=== PATIENT | male | born 1955 | race Caucasian/White ===

== ENCOUNTER 2017-04-20 08:22 | Outpatient (RCR) | payer OTHER ==
[~2017-04-20 08:22] MED LIST: AC325T; ACET325T49 PO; ASCO500T20 PO; ASP325T PO; ASP81CT PO; ASPI-875 PO; BISM262T19 PO; CAL; CAL1TABL PO; CLOP75TA PO; HYDR-3714 PO; LISI10TA PO; MAG CITRATE; MECL-124 PO; METO-310 PO; MTP25TSR PO; MULT-974 PO; MULT1TAB12 PO; MULT1TAB63; OMEG1CAP51 PO; OMEG1CAP58; OMG1KC PO; ONDA4TAB8 PO; OXYC-12 PO; PANT20TA2 PO; PRAV40TA PO; PRV20T PO; SAWP1CAP; SAWP1CAP PO; VIT C
== END 2017-05-05 15:08 | disposition home or self-care (01) ==
PROVIDERS: ATTEND Orthopaedic Surgery
DX: Z47.89 Encounter for other orthopedic aftercare (principal)

== ENCOUNTER 2017-11-03 05:43 | Observation (INO) | payer BC, OTHER ==
[~2017-11-03] VITALS: Ht 167.6 cm; Wt 92.5 kg
[2017-11-03] MEDS ORDERED: NITROGLYCERIN 0.4 MG SL TABS BTL 25'S SL ONE (05:45)
[2017-11-03] MEDS: NITROGLYCERIN 0.4 MG SL TABS BTL 25'S SL PRN ×2 (05:47→05:52)
[2017-11-03 06:00] LABS: BASOPHILS % (AUTO) 0 % (0-10); EOSINOPHILS # (AUTO) 0.1 10^3/uL (0.0-0.3); EOSINOPHILS % (AUTO) 2 % (0-10); HEMATOCRIT 43 % (40-54); HEMOGLOBIN 14.4 G/DL (13.3-17.7); LYMPHOCYTES # (AUTO) 1.7 X 10^3 (1.0-4.0); LYMPHOCYTES % (AUTO) 32 % (12-44); MEAN CORPUSCULAR HEMOGLOBIN 29 PG (25-34); MEAN CORPUSCULAR HGB CONC 34 G/DL (32-36); MEAN CORPUSCULAR VOLUME 86 FL (80-99); MONOCYTES # (AUTO) 0.5 X 10^3 (0.0-1.0); MONOCYTES % (AUTO) 10 % (0-12); NEUTROPHILS # (AUTO) 2.9 X 10^3 (1.8-7.8); NEUTROPHILS % (AUTO) 55 % (42-75); PLATELET COUNT 191 10^3/uL (130-400); RED BLOOD COUNT 4.95 10^6/uL (4.35-5.85); WHITE BLOOD COUNT 5.2 10^3/uL (4.3-11.0)
[2017-11-03 06:11] LABS: PROTHROMBIN TIME PATIENT 12.7 SEC (12.2-14.7)
[2017-11-03 06:27] LABS: ALANINE AMINOTRANSFERASE 21 U/L (0-55); ALBUMIN 4.2 GM/DL (3.2-4.5); ALKALINE PHOSPHATASE 80 U/L (40-136); AMYLASE 71 U/L (25-125); BILIRUBIN,TOTAL 0.5 MG/DL (0.1-1.0); BUN/CREATININE RATIO 20; CALCIUM 9.3 MG/DL (8.5-10.1); CARBON DIOXIDE 23 MMOL/L (21-32); CHLORIDE 105 MMOL/L (98-107); CREATINE KINASE 114 U/L (30-200); GFR ESTIMATED > 60; GLUCOSE 113 MG/DL (70-105); LIPASE 33 U/L (8-78); MAGNESIUM 2.2 MG/DL (1.8-2.4); POTASSIUM 4.1 MMOL/L (3.6-5.0); SODIUM 138 MMOL/L (135-145); TOTAL PROTEIN 7.8 GM/DL (6.4-8.2)
[2017-11-03 06:39] LABS: CREATINE KINASE MB 2.2 NG/ML (<6.6); MYOGLOBIN SERUM 47.7 NG/ML (10.0-92.0)
--- NOTE | 2017-11-03 06:39 | ED Chest Pain ---
General Chief Complaint: Chest Pain Stated Complaint: CP Nursing Triage Note: chest pain since 0230 Nursing Sepsis Screen: No Definite Risk Source: patient, family Exam Limitations: no limitations History of Present Illness Date Seen by Provider: Nov 03, 2017 Time Seen by Provider: 06:36 Initial Comments The patient's a 62-year-old white male who presents with a chief complaint of central chest pain radiating to the neck. He was apparently awakened at about 02 30 with this discomfort. He denies diaphoresis. It came on as he was getting up to go to the bathroom. It continued relatively unabated following that. He took several aspirins. He had no nitroglycerin. His past history is relevant in that he had [address] Padron in 2010. Subsequently he presented in 2013 with chest pain and after angiography was referred to Dr. VALENCIA at [place] where he underwent a coronary artery bypass grafting procedure. He has not really had any trouble since that time. He has had hypertension but ultimately his beta long was discontinued because he became too hypotensive. Currently he takes an aspirin and a statin. After arrival here he had been given nitroglycerin and the pain has abated and he is pain free Timing/Duration: 4-6 hours Severity/Quality: mild, moderate Location: central Radiation: neck Prior CP/Workup: cardiac cath, heart attack Allergies and Home Medications Allergies Coded Allergies: Sulfa (Sulfonamide Antibiotics) (Verified Allergy, Unknown, 03/25/08) Home Medications Bismuth Subsalicylate 262 Mg Tablet, 2 TAB PO TID TAKE 2 TABLETS OF PEPTO BISMOL THREE TIME A DAY Prescribed by: ELODIA MIJARES on 03/20/15 0949 Metoclopramide HCl 10 Mg Tablet, 10 MG PO AC TAKE 1/2 HOUR BEFORE MEALS Prescribed by: ELODIA MIJARES on 03/20/15 0946 Multivitamin 1 Each Tablet, 1 EACH PO DAILY Prescribed by: CARISSA KIM on 03/12/14 0724 Pantoprazole Sodium 20 Mg Tablet.dr, 40 MG PO DAILY Prescribed by: RODDY MEYER on 03/17/14 1116 Pravastatin Sodium 40 Mg Tablet, 40 MG PO DAILY, (Reported) Patient Home Medication List Home Medication List Reviewed: Yes Review of Systems Constitutional: see HPI EENTM: No Symptoms Reported Respiratory: No Symptoms Reported Cardiovascular: See HPI Gastrointestinal: No Symptoms Reported Genitourinary: No Symptoms Reported Musculoskeletal: no symptoms reported Skin: no symptoms reported Psychiatric/Neurological: No Symptoms Reported Endocrine: No Symptoms Reported Past Qoejevo-Jwbgbx-Heqine Hx Patient Social History Alcohol Use: Denies Use Recreational Drug Use: No Smoking Status: Never a Smoker 2nd Hand Smoke Exposure: No Recent Foreign Travel: No Contact w/Someone Who Travel: No Recent Infectious Disease Expo: No Recent Hopitalizations: No Immunizations Up To Date Tetanus Booster (TDap): Unknown Past Medical History Surgeries: Yes (CYST REMOVED FROM URETHRA, UMBILICAL HERNIA REPAIR X2) CABG, Gallbladder Respiratory: No Cardiac: Yes (STENTS AND CABG) High Cholesterol, Hypertension Neurological: No Reproductive Disorders: No Sexually Transmitted Disease: No HIV/AIDS: No Genitourinary: No Kidney Stones Gastrointestinal: Yes Abdominal Hernia, Gall Bladder Disease Musculoskeletal: No Endocrine: No HEENT: No Cancer: No Psychosocial: Yes Anxiety Integumentary: No Blood Disorders: No Adverse Reaction/Blood Tranf: No Physical Exam Vital Signs Vital Signs - First Documented Capillary Refill : Less Than 3 Seconds Height, Weight, BMI Height: 5'6.00" Weight: 205lbs. 4.8oz. [id number]; 35.67 BMI Method:Stated General Appearance: Mild Distress HEENT: Normal ENT Inspection Neck: Normal Inspection Respiratory: Chest Non Tender, Lungs Clear, Normal Breath Sounds, No Accessory Muscle Use, No Respiratory Distress Cardiovascular: Regular Rate, Rhythm, No Edema, No Gallop, No JVD, No Murmur, Normal Peripheral Pulses, Other (sternotomy scar) Gastrointestinal: Normal Bowel Sounds, No Organomegaly, No Pulsatile Mass, Non Tender Extremity: Normal Capillary Refill, Normal Inspection, Normal Range of Motion, Non Tender, No Calf Tenderness, No Pedal Edema Neurologic/Psychiatric: Alert, Oriented x3, No Motor/Sensory Deficits, Normal Mood/Affect Skin: Normal Color, Warm/Dry Progress/Results/Core Measures Results/Orders Lab Results Laboratory Tests Test 11/03/17 05:49 Range/Units White Blood Count 5.2 4.3-11.0 10^3/uL Red Blood Count 4.95 4.35-5.85 10^6/uL Hemoglobin 14.4 13.3-17.7 G/DL Hematocrit 43 40-54 % Mean Corpuscular Volume 86 80-99 FL Mean Corpuscular Hemoglobin 29 25-34 PG Mean Corpuscular Hemoglobin Concent 34 32-36 G/DL Red Cell Distribution Width 14.0 10.0-14.5 % Platelet Count 191 130-400 10^3/uL Mean Platelet Volume 10.0 7.4-10.4 FL Neutrophils (%) (Auto) 55 42-75 % Lymphocytes (%) (Auto) 32 12-44 % Monocytes (%) (Auto) 10 0-12 % Eosinophils (%) (Auto) 2 0-10 % Basophils (%) (Auto) 0 0-10 % Neutrophils # (Auto) 2.9 1.8-7.8 X 10^3 Lymphocytes # (Auto) 1.7 1.0-4.0 X 10^3 Monocytes # (Auto) 0.5 0.0-1.0 X 10^3 Eosinophils # (Auto) 0.1 0.0-0.3 10^3/uL Basophils # (Auto) 0.0 0.0-0.1 10^3/uL Prothrombin Time 12.7 12.2-14.7 SEC INR Comment 1.0 0.8-1.4 Activated Partial Thromboplast Time 31 24-35 SEC Sodium Level 138 135-145 MMOL/L Potassium Level 4.1 3.6-5.0 MMOL/L Chloride Level 105 98-107 MMOL/L Carbon Dioxide Level 23 21-32 MMOL/L Anion Gap 10 5-14 MMOL/L Blood Urea Nitrogen 16 7-18 MG/DL Creatinine 0.80 0.60-1.30 MG/DL Estimat Glomerular Filtration Rate > 60 BUN/Creatinine Ratio 20 Glucose Level 113 H 70-105 MG/DL Calcium Level 9.3 8.5-10.1 MG/DL Corrected Calcium 9.1 8.5-10.1 MG/DL Magnesium Level 2.2 1.8-2.4 MG/DL Total Bilirubin 0.5 0.1-1.0 MG/DL Aspartate Amino Transf (AST/SGOT) 26 5-34 U/L Alanine Aminotransferase (ALT/SGPT) 21 0-55 U/L Alkaline Phosphatase 80 40-136 U/L Total Creatine Kinase 114 30-200 U/L Creatine Kinase MB 2.2 <6.6 NG/ML Myoglobin 47.7 10.0-92.0 NG/ML Troponin I < 0.30 <0.30 NG/ML B-Type Natriuretic Peptide 10.1 <100.0 PG/ML Total Protein 7.8 6.4-8.2 GM/DL Albumin 4.2 3.2-4.5 GM/DL Amylase Level 71 25-125 U/L Lipase 33 8-78 U/L Medications Given in ED Current Medications Medications Dose Ordered Sig/Michele Route Start Time Stop Time Status Last Admin Dose Admin Nitroglycerin 0.4 mg UD PRN SL 11/03/17 06:00 11/03/17 05:52 0.4 MG Vital Signs/I&O 11/03/17 11/03/17 11/03/17 05:45 05:45 05:45 Temp 98.8 Pulse 80 Resp 18 B/P (MAP) 175/74 (107) Pulse Ox 99 99 O2 Delivery Nasal Cannula Nasal Cannula Nasal Cannula O2 Flow Rate 2.0 2.0 2.00 Blood Pressure Mean: 107 Departure Communication (Admissions) Troponin returned negative. It is noted that the patient refused a chest x- ray. Spoke to Dr. Padron at 0655. The patient is to be admitted to stepdown as observation. Impression Primary Impression: chest pain Additional Impression: past history of coronary intervention Disposition: ADMITTED INPATIENT Condition: Improved Admissions Decision to Admit Reason: Admit from ER (General) Decision to Admit/Date: Nov 03, 2017 Time/Decision to Admit Time: 07:07 Departure-Patient Inst. Referrals: JILLIAN JAMES MD (PCP/Family) Primary Care Physician STEPHANI ROCKWELL MD Nov 03, 2017 06:39
[2017-11-03 08:00] VITALS: BP 122/67
--- NOTE | 2017-11-03 08:37 | Consultation-Cardiology ---
HPI-Cardiology Cardiology Consultation Date of Consultation 11/03/17 Date of Admission Time Seen by Provider: 08:36 Indication: Chest pain HPI 62 years old gentleman with extensive cardiac history, history of CABG, strong family history of heart disease, woke up with chest pain left sided, appeared to be repaired dose, had left-sided neck pain, reporting improvement after receiving sublingual nitroglycerin in the emergency room, currently feeling better. Denied any active pain. He admits having some shortness of breath. No palpitation, syncope or near syncopal episode no similar episodes recently. Home Medications & Allergies Allergies: Coded Allergies: Sulfa (Sulfonamide Antibiotics) (Verified Allergy, Unknown, 03/25/08) Home Medication List Reviewed: Yes XSM-Cexknt-Tiygjg Hx Patient Social History Marital Status: Alcohol Use: Denies Use Recreational Drug Use: No Smoking Status: Never a Smoker 2nd Hand Smoke Exposure: No Recent Foreign Travel: No Recent Infectious Disease Expo: No Recent Hopitalizations: No Immunizations Up To Date Tetanus Booster (TDap): Unknown Past Medical History Past medical history discussed below Family Medical History Family Medical Hx Strong family history of heart disease with multiple family members with heart disease Constitutional: no symptoms reported, see HPI EENTM: see HPI, no symptoms reported Respiratory: see HPI; No cough; dyspnea on exertion; No hemoptysis, No orthopnea, No phlegm, No short of breath, No stridor, No wheezing, No other Cardiovascular: see HPI, chest pain; No edema, No Hx of Intervention, No palpitations, No syncope, No vascular heart diseas, No other Gastrointestinal: see HPI Genitourinary: see HPI Musculoskeletal: see HPI Skin: see HPI Psychiatric/Neurological: No Symptoms Reported, See HPI Reviewed Test Results Reviewed Test Results Lab Laboratory Tests Test 11/03/17 05:49 Range/Units White Blood Count 5.2 4.3-11.0 10^3/uL Red Blood Count 4.95 4.35-5.85 10^6/uL Hemoglobin 14.4 13.3-17.7 G/DL Hematocrit 43 40-54 % Mean Corpuscular Volume 86 80-99 FL Mean Corpuscular Hemoglobin 29 25-34 PG Mean Corpuscular Hemoglobin Concent 34 32-36 G/DL Red Cell Distribution Width 14.0 10.0-14.5 % Platelet Count 191 130-400 10^3/uL Mean Platelet Volume 10.0 7.4-10.4 FL Neutrophils (%) (Auto) 55 42-75 % Lymphocytes (%) (Auto) 32 12-44 % Monocytes (%) (Auto) 10 0-12 % Eosinophils (%) (Auto) 2 0-10 % Basophils (%) (Auto) 0 0-10 % Neutrophils # (Auto) 2.9 1.8-7.8 X 10^3 Lymphocytes # (Auto) 1.7 1.0-4.0 X 10^3 Monocytes # (Auto) 0.5 0.0-1.0 X 10^3 Eosinophils # (Auto) 0.1 0.0-0.3 10^3/uL Basophils # (Auto) 0.0 0.0-0.1 10^3/uL Prothrombin Time 12.7 12.2-14.7 SEC INR Comment 1.0 0.8-1.4 Activated Partial Thromboplast Time 31 24-35 SEC Sodium Level 138 135-145 MMOL/L Potassium Level 4.1 3.6-5.0 MMOL/L Chloride Level 105 98-107 MMOL/L Carbon Dioxide Level 23 21-32 MMOL/L Anion Gap 10 5-14 MMOL/L Blood Urea Nitrogen 16 7-18 MG/DL Creatinine 0.80 0.60-1.30 MG/DL Estimat Glomerular Filtration Rate > 60 BUN/Creatinine Ratio 20 Glucose Level 113 H 70-105 MG/DL Calcium Level 9.3 8.5-10.1 MG/DL Corrected Calcium 9.1 8.5-10.1 MG/DL Magnesium Level 2.2 1.8-2.4 MG/DL Total Bilirubin 0.5 0.1-1.0 MG/DL Aspartate Amino Transf (AST/SGOT) 26 5-34 U/L Alanine Aminotransferase (ALT/SGPT) 21 0-55 U/L Alkaline Phosphatase 80 40-136 U/L Total Creatine Kinase 114 30-200 U/L Creatine Kinase MB 2.2 <6.6 NG/ML Myoglobin 47.7 10.0-92.0 NG/ML Troponin I < 0.30 <0.30 NG/ML B-Type Natriuretic Peptide 10.1 <100.0 PG/ML Total Protein 7.8 6.4-8.2 GM/DL Albumin 4.2 3.2-4.5 GM/DL Amylase Level 71 25-125 U/L Lipase 33 8-78 U/L Physical Exam Vital Signs Vital Signs - First Documented Capillary Refill : Less Than 3 Seconds Height, Weight, BMI Height: 5'6.00" Weight: 205lbs. 4.8oz. 93.617773gp; 35.67 BMI Method:Stated General Appearance: No Apparent Distress, WD/WN Eyes: Bilateral Eye Normal Inspection, Bilateral Eye PERRL, Bilateral Eye EOMI HEENT: PERRL/EOMI, TMs Normal, Normal ENT Inspection, Pharynx Normal Neck: Full Range of Motion, Normal Inspection, Non Tender, Supple, Carotid Bruit Respiratory: Chest Non Tender, Lungs Clear, Normal Breath Sounds, No Accessory Muscle Use, No Respiratory Distress Cardiovascular: Regular Rate, Rhythm, No Edema, No Gallop, No JVD, No Murmur, Normal Peripheral Pulses Gastrointestinal: Normal Bowel Sounds, No Organomegaly, No Pulsatile Mass, Non Tender, Soft Back: Normal Inspection, No CVA Tenderness, No Vertebral Tenderness Extremity: Normal Capillary Refill, Normal Inspection, Normal Range of Motion, Non Tender, No Calf Tenderness, No Pedal Edema Neurologic/Psychiatric: Alert, Oriented x3, No Motor/Sensory Deficits, Normal Mood/Affect Skin: Normal Color, Warm/Dry Lymphatic: No Adenopathy A/P-Cardiology Admission Diagnosis Chest pain Coronary artery disease Hypertension Hyperlipidemia Assessment/Plan Chest pain resembling angina. Feeling better at this time, improve after sublingual nitroglycerin, planning to repeat stress test, continue to monitor cardiac enzymes. Coronary artery disease, history of multiple interventions where he had stents in the LAD, circumflex and right coronary artery done in 2010. Had another cardiac catheterization in June 2013 showing 80 percent stenosis in the ostium of the LAD confirmed with FFR and 95 percent stenosis in the proximal to mid right coronary artery. Patient underwent CABG 2 at [place] June 2013 using ARCE to the LAD and reverse saphenous vein graft to the distal right coronary artery with excellent results. Most recent stress test and 2-D echocardiogram done July 2014 revealing no ischemia or infarct with normal EF, planning to repeat stress test and echocardiogram Congestive heart failure, most recent echocardiogram done in July 2014 showed normal LV function, ejection fraction 60 percent. No congestive heart failure at this time. Continue to monitor. Patient is unable to tolerate beta blockers or Edil inhibitors/ARB's secondary to history of hypotension and syncope. History of Hypertension, episodes of severe hypotension, reporting improvement after discontinuation of beta blockers and lisinopril. Monitor blood pressure Hyperlipidemia, lipid profile reveals mildly elevated LDL. Maintained on pravastatin 40 mg daily. Discussed diet and exercise. Hyperparathyroidism, underwent surgical parathyroidectomy on September 22, 2016, and again in March 2017. Being followed at . Obesity, BMI is 33, patient has gained weight, we discussed weight loss and exercise and monitoring his diet. Status post syncope. Borderline hypotensive. Improved after discontinuation of beta blockers and lisinopril. We will continue to monitor. Strong family history of heart disease. Addendum on November 03, 2017 at 320 p.m. Stress test showed good exercise tolerance with no significant ischemia, diaphragmatic attenuation with mild decreased uptake at the mid to apical inferior wall with mild reversibility. I reassured the patient, patient will be discharged, he refused to have a chest x-ray done. I will arrange for follow -up with Dr. Merida and my office as an outpatient Clinical Quality Measures AMI/AHF: ASA po Prior to arrival: Yes (324) FORTUNATO BOUCHER MD Nov 03, 2017 08:37
[2017-11-03 09:00] VITALS: BP 109/57
[2017-11-03] MEDS ORDERED: PRAV40TA2 PO (09:20)
[2017-11-03] MEDS ORDERED: MULT-35 PO (09:21)
[2017-11-03] MEDS ORDERED: ASPI-983 PO (09:21)
[2017-11-03] MEDS ORDERED: CHOL20003 PO (09:21)
[2017-11-03] MEDS ORDERED: OMG1KC PO (09:21)
[2017-11-03 10:00] VITALS: BP 123/65
[2017-11-03 11:00] VITALS: BP 119/61
[2017-11-03] MEDS ORDERED: NITROGLYCERIN 0.4 MG SL TABS BTL 25'S SL PRN (12:00)
[2017-11-03] MEDS ORDERED: CATHETER FLUSH 10 ML SYR IV PRN (12:00)
[2017-11-03 12:55] VITALS: BP 188/88
[2017-11-03 14:00] VITALS: BP 118/96
[2017-11-03] MEDS ORDERED: CATHETER FLUSH 10 ML SYR IV SCH (14:00)
[2017-11-03] MEDS ORDERED: ALPRAZolam 0.25 MG (XANAX) TAB PO PRN (15:00)
[2017-11-03] MEDS ORDERED: ONDANSETRON 4 MG/2 ML (SDV) Z0FRAN IVP PRN (15:00)
[2017-11-03] MEDS ORDERED: fentaNYL INJECTION 100 MCG/2 ML AMP IVP PRN (15:00)
[2017-11-03] MEDS ORDERED: DOCUSATE SODIUM 100 MG (COLACE) CAP PO PRN (15:00)
[2017-11-03] MEDS ORDERED: ACETAMINOPHEN 500 MG TAB (TYLENOL) PO PRN (15:00)
[2017-11-03] MEDS ORDERED: CALCIUM CARBONATE 500 MG (TUMS) TAB.CHEW PO PRN (15:00)
--- NOTE | 2017-11-03 15:08 | Progress Note-Hospitalist ---
ALBA BARBOZA MED STUDENT 11/03/17 1508: Subjective HPI/CC On Admission Date Seen by Provider: Nov 03, 2017 Time Seen by Provider: 15:02 Subjective/Events-last exam Pt has been stable since admission Ambulating No pain since taking nitroglycerin this morning No bowel/bladder dysfunction Reviewed medications- continue aspirin and statin tx Stress test results pending Objective Exam Vital Signs Vital Signs Date Time Temp Pulse Resp B/P (MAP) Pulse Ox O2 Delivery O2 Flow Rate FiO2 11/03/17 14:00 97.8 Room Air 11/03/17 13:00 94 11/03/17 12:55 98 11/03/17 07:59 17 2.00 Capillary Refill : Less Than 3 Seconds General Appearance: No Apparent Distress Results/Procedures Lab Laboratory Tests 11/03/17 05:49 Patient resulted labs reviewed. Assessment/Plan Assessment and Plan Assess & Plan/Chief Complaint Assessment: ACS Plan: Troponin negative Continue statin and aspirin Reviewed labs Stress test results pending Clinical Quality Measures AMI/AHF: ASA po Prior to arrival: Yes (324) DVT/VTE Risk/Contraindication: Risk Factor Score Per Nursin RFS Level Per Nursing on Admit: 3=High NATALYA COELHO DO 11/03/17 2140: Subjective Subjective/Events-last exam Patient was not see before DC Objective Exam General Appearance: Other (pt not seen by attending before DC) Assessment/Plan Assessment and Plan Assess & Plan/Chief Complaint chest pain ALBA BARBOZA MED STUDENT Nov 03, 2017 15:08 NATALYA COELHO DO Nov 03, 2017 21:40
--- NOTE | 2017-11-03 15:24 | Clinic Account Progress/Dx ---
Clinic Account Progress/Dx DIAGNOSIS: Date Seen by Provider: Nov 03, 2017 Time Seen by Provider: 15:24 Chest pain Coronary artery disease Hypertension Hyperlipidemia FORTUNATO BOUCHER MD Nov 03, 2017 3:24 pm
--- NOTE | 2017-11-03 15:36 | ELECTROENCEPHALOPATHY REPORT ---
DATE OF SERVICE: 11/03/2017 EXERCISE MYOVIEW STRESS TEST REPORT Baseline heart rate is 77, baseline blood pressure 152/70. Baseline EKG is sinus rhythm with no ischemic changes. In summary, the patient was injected with 9.5 mCi of technetium-99 Myoview and the resting images were obtained. Then, the patient started exercising with a baseline heart rate, blood pressure and EKG mentioned above. The patient was able to exercise for a total of 6 minutes on Clyde protocol, achieving maximum heart rate of 140. With peak exercise level, blood pressure was 190/79. EKG was showing [address] depression in II, III, aVF, V4 and V5. During recovery, heart rate and blood pressure returned to baseline. EKG returned to baseline. The resting and stress images were reviewed and compared in the short axis, horizontal long axis, and vertical long axis views. Review of the images showed diaphragmatic attenuation with decreased uptake involving the mid to apical inferior wall and inferolateral wall with mild reversibility. SSS is 4, SDS 3, TID value 0.97. On the gated images, the left ventricle appeared to be in normal size with normal contractility. Calculated ejection fraction of 52%. CONCLUSION: 1. Fair exercise tolerance, a total of 6 minutes on standard Clyde protocol, total of 7.3 METS achieving 89% of maximum expected heart rate. 2. Hypertensive response to exercise, returned to baseline during recovery. 3. Minimal nondiagnostic EKG changes with exercise returned to baseline during recovery. 4. Diaphragmatic attenuation with mild decrease uptake at the mid to apical inferior wall and inferolateral wall with subtle reversibility. 5. Normal left ventricular size with normal contractility. Calculated ejection fraction of 52%. Job ID: [id number] DocumentID: [id number] Dictated Date: 11/03/2017 15:11:52 In Home Baby Sitter Date: 11/03/2017 15:35:45 Dictated By: FORTUNATO BOUCHER MD
[2017-11-03] MEDS ORDERED: OMEGA 3 (FISH OIL) 1000 MG CAP PO SCH (17:00)
[2017-11-03] MEDS ORDERED: SIMvastatin 20 MG (ZOCOR) TAB PO SCH (21:00)
[2017-11-03] MEDS ORDERED: NON-FORMULARY MEDICATION 1 EA EA (Pravastatin Sodium 40 MG) PO SCH (21:00)
--- NOTE | 2017-11-03 21:41 | History & Physical-Hospitalist ---
History of Present Illness HPI/Chief Complaint Patient not seen prior to DC Date Seen 11/03/17 Time Seen by Provider: 00:00 Attending Physician Darby Stevenson DO PCP Sonny Merida MD Referring Physician Date of Admission Nov 03, 2017 at 07:00 Home Medications & Allergies Home Medications Reviewed patient Home Medication Reconciliation performed by pharmacy medication reconciliations train control electronic technician and/or nursing. Patients Allergies have been reviewed. Allergies Allergies Coded Allergies Sulfa (Sulfonamide Antibiotics) (Verified Allergy, Unknown, 03/25/08) Past Nmccuit-Rjfghc-Wbioby Hx Past Med/Social Hx: Reviewed Nursing Past Med/Soc Hx Patient Social History Marrital Status: Alcohol Use: Denies Use Recreational Drug Use: No Smoking Status: Never a Smoker 2nd Hand Smoke Exposure: No Physical Abuse Screen: No Sexual Abuse: No Recent Foreign Travel: No Contact w/other who traveled: No Recent Hopitalizations: No Recent Infectious Disease Expo: No Immunizations Up To Date Tetanus Booster (TDap): Unknown Seasonal Allergies Seasonal Allergies: No Past Medical History Surgeries: CABG, Gallbladder Cardiac: High Cholesterol, Hypertension Reproductive: No Sexually Transmitted Disease: No HIV/AIDS: No Genitourinary: Kidney Stones Gastrointestinal: Abdominal Hernia, Gall Bladder Disease Psychosocial: Anxiety History of Blood Disorders: No Adverse Reaction to Blood Steele: No Review of Systems ROS-Unable to Obtain: Patient not seen prior to DC Constitutional: other (Patient not seen prior to DC) Physical Exam Physical Exam Vital Signs Vital Signs - First Documented Capillary Refill : Less Than 3 Seconds Height, Weight, BMI Height: 5'6.00" Weight: 204lbs. 0.6oz. 92.446076ps; 32.9 BMI Method:Stated General Appearance: Other (Patient not seen prior to DC) Results Results/Procedures Labs Laboratory Tests 11/03/17 05:49 Patient resulted labs reviewed. Assessment/Plan Admission Diagnosis Patient not seen prior to DC Admission Status: Observation Reason for Inpatient Admission: Patient not seen prior to DC Assessment and Plan chest pain Clinical Quality Measures AMI/AHF: ASA po Prior to arrival: Yes (324) DVT/VTE Risk/Contraindication: Risk Factor Score Per Nursin RFS Level Per Nursing on Admit: 3=High DARBY STEVENSON DO Nov 03, 2017 21:41
[2017-11-04] MEDS ORDERED: MULTIVIT W/MINERALS TAB (THERAGRAN M) PO SCH (07:00)
[2017-11-04] MEDS ORDERED: NON-FORMULARY MEDICATION 1 EA EA (Multivitamin (Daily Multiple Vitamin) 1 TAB) PO SCH (09:00)
[2017-11-04] MEDS ORDERED: NON-FORMULARY MEDICATION 1 EA EA (Cholecalciferol (Vitamin D3) (Vitamin D3) 2,000 UNIT) PO SCH (09:00)
[2017-11-04] MEDS ORDERED: VITAMIN D3 1,000 UNITS (CHOLECALCIFEROL) TABLET PO SCH (09:00)
[2017-11-04] MEDS ORDERED: ASPIRIN E.C. 81 MG (ECOTRIN) TAB PO SCH (09:00)
--- OUTSIDE RECORDS SUMMARY | 2017-11-04 10:29 | XMS REPORT | Clinical Summary ---
Author Author [facility] Address Unknown Phone Unavailable Care Team Providers Care Supervisor Customer Records Division Name Role Phone Reese Son MD PP Allergies No Known Allergies Current Medications Prescription Sig. Disp. Refills Start End Date Status Date atorvastatin (LIPITOR) 40 Take 40 mg by mouth 9 07/22/19 Active MG tablet daily. 16 Active Problems No known active problems Immunizations Name Dates Previously Given Next Due Influenza IIV3 MDV 01/11/2013, 12/28/2011, 12/29/2010 (Multi-dose vial) Influenza IIV4 MDV 01/06/2015, 01/08/2014 (Multi-dose vial) Influenza TIV (HX thru 12/30/2009, 12/03/2008, 01/25/2008, 01/28/2005, Dec 18 2009) 01/22/2003, 01/23/2002, 01/31/2001 Family History Medical History Relation Name Comments Cancer Father Cancer Mother Relation Name Status Comments Father Mother Sister Alive Social History Tobacco Use Types Packs/Day Years Used Date Never Smoker Smokeless Tobacco: Former User Alcohol Use Drinks/Week oz/Week Comments Yes 1 Standard 0.6 drinks or equivalent Sex Assigned at Date Recorded Not on file Last Filed Vital Signs Vital Sign Reading Time Taken Blood Pressure 151/84 09/18/2015 2:37 PM CDT Pulse 55 09/18/2015 2:37 PM CDT Temperature 36.7 C (98 F) 09/18/2015 12:21 PM CDT Respiratory Rate 18 09/18/2015 2:37 PM CDT Oxygen Saturation 98% 09/18/2015 2:37 PM CDT Inhaled Oxygen - - Concentration Weight 102.1 kg (225 lb) 09/18/2015 12:21 PM CDT Height 177.8 cm (5' 10") 09/18/2015 12:21 PM CDT Body Mass Index 32.28 09/18/2015 12:21 PM CDT Plan of Treatment Health Maintenance Due Date Last Done Comments Hepatitis C Screening 1955 DTaP,Tdap,and Td Vaccines 02/08/1974 (1 - Tdap) Zoster Recombinant 02/08/2005 Vaccine (RZV,Shingrix) (1 of 2 - SVH 2 Dose Standard) Colon Cancer 09/17/2020 09/18/2015, 09/18/2015 Screening-High Risk Results Not on filefrom Last 3 Months
--- OUTSIDE RECORDS SUMMARY | 2017-11-04 10:29 | XMS REPORT | Encounter Summary ---
Author Author [facility] Organization [facility] Address Unknown Phone Unavailable Care Team Providers Care Wrap Yarn Sorter Name Role Phone Sonny Merida MD PCP Reason for Visit * Reason Comments Results Encounter Details Date Type Department Care Team Description 10/26/2017 Telephone [facility] Rock Barker MD Results [facility] - [facility] Exam [address] [facility] Cancer Center [facility] [address] [place] [address] [place] [address] [phone] Social History Tobacco Use Types Packs/Day Years Used Date Never Smoker Smokeless Tobacco: Never Used Alcohol Use Drinks/Week oz/Week Comments No Sex Assigned at Date Recorded Not on file as of this encounter Functional Status Functional Status Response Date of Assessment Does the patient have a hearing impairment: No 09/23/2016 Does the patient have a visual impairment: No 09/23/2016 Does the patient have impaired ambulation: No 09/23/2016 Does the patient have an activity of daily living No 09/23/2016 (ADL) impairment: Does the patient have an instrumental activity of No 09/23/2016 daily living (IADL) impairment: Cognitive Status Response Date of Assessment Does the patient have a cognitive impairment: No 09/23/2016 as of this encounter Miscellaneous Notes * Telephone Encounter - Soha Correa RN - 10/26/2017 12:27 PM CDT Called pt to inform them that Dr. Barker has reveiwed their lab results and everything looks good. Pt did not answer the phone. I left a voicemail with a call back number. in this encounter Plan of Treatment Not on fileas of this encounter Visit Diagnoses Not on filein this encounter
--- OUTSIDE RECORDS SUMMARY | 2017-11-04 10:29 | XMS REPORT | Encounter Summary ---
Author Author [facility] Organization [facility] Address Unknown Phone Unavailable Care Team Providers Care Battery Vent Plug Inserter Name Role Phone Sonny Merida MD PCP Encounter Details Date Type Department Care Team Description 10/25/2017 Orders Only [facility] Rock Barker MD Cancer Center - [facility] Exam [address] [facility] Cancer Center [facility] [address] [place] [address] [place] [address] [phone] Social History Tobacco Use Types Packs/Day Years [...] impairment: No 09/23/2016 as of this encounter Plan of Treatment Not on fileas of this encounter Results * PARATHYROID HORMONE (10/25/2017 1:00 PM) PTH Hormone 44 14 - 64 pg/mL [facility] Comment: Interpretive GuideIntact PTH Calcium ------ ------- Normal ParathyroidNormal Normal HypoparathyroidismLow or Low NormalLow Hyperparathyroidism Primary Normal or High High SecondaryH igh Normal or Low Tertiary High High Non-Parathyroid HypercalcemiaLow or Low NormalHigh REPORT COMMENT: FASTING:NO Test Performed at: [facility] [address] [employer] [place], [id number] JONATHON HERRMANN DO,MPH Performing Organization Address [facility] Phone Number [facility] [phone] [place] [address] * 25-OH VITAMIN D (D2 + D3) (10/25/2017 12:41 PM) Vitamin D(25-OH)Total 42 30 - 100 ng/mL [facility] Comment: 25-OHD3 indicates both endogenous production and supplementation. 25-OHD2 is an indicator of exogenous sources, such as diet or supplementation. Therapy is based on measurement of Total 25-OHD, with levels <20 ng/mL indicative of Vitamin D deficiency, while levels between 20 ng/mL and 30 ng/mL suggest insufficiency. Optimal levels are > or=30 ng/mL. VITAMIN D3,25-OH 42Comment: Reference Range: See Below ng/mL [facility] Not established Vitamin D2,25-OH <4 See Below ng/mL [facility] Comment: Reference Range: Not established This test was developed and its analytical performance characteristics have been determined by [facility]. It has not been cleared or approved by the US Food and Drug Administration. This assay has been validated pursuant to the CLIA regulations and is used for clinical purposes. Test Performed at: [facility] [id number] SHERYL CONDON MD,PHD Performing Organization Address [facility] Phone Number [facility] [address] [place] [address] * CALCIUM (10/25/2017 12:41 PM) Calcium 9.0 8.6 - 10.3 mg/dL [facility] Comment: Test Performed at: [facility] [address] [employer] [place], [id number] JONATHON HERRMANN DO,MPH Performing Organization Address [facility] Phone Number [facility] [address] [place] [address] in this encounter Visit Diagnoses Not on filein this encounter
--- OUTSIDE RECORDS SUMMARY | 2017-11-04 10:29 | XMS REPORT | Clinical Summary ---
Author Author [facility] Organization [facility] Address Unknown Phone Unavailable Care Team Providers Care Dry Starch Operator Name Role Phone Sonny Merida MD PCP Source Comments Some departments are not documenting in the electronic medical record. If you do not see the information that you expected, contact Release of Information in the Health Information Management department at [phone] for further assistance in locating additional records.[facility] Allergies Active Allergy Reactions Severity Noted Date Comments Anesthetics - Amide Type NAUSEA AND VOMITING Low 08/23/2016 Pt reports intolerance to general anesthesia Sulfa (Sulfonamide RASH, ITCHING Medium 08/23/2016 Antibiotics) Current Medications Prescription Sig. Disp. Refills Start End Date Status Date aspirin EC 81 mg tablet Take 81 mg by mouth Active daily. Take with food. pravastatin (PRAVACHOL) Take 40 mg by mouth at Active 40 mg tablet bedtime daily. vitamins, multiple tablet Take 1 Tab by mouth Active daily. fish oil- omega 3-DHA/EPA Take 1 Cap by mouth three Active 300/1,000 mg capsule times daily. ascorbic acid (VITAMIN C) Take 500 mg by mouth Active 500 mg tablet daily. olive leaf extract 250 mg Take 1 capsule by mouth Active cap daily. Cholecalciferol (Vitamin Take 1 capsule by mouth Active D3) 2,000 unit cap daily. traMADol (ULTRAM) 50 mg Take 50 mg by mouth every Active tablet 6 hours as needed for Pain. oxyCODONE (ROXICODONE, Take 1 tablet by mouth 40 tablet 0 04/15/19 10/26/19 Discontin OXY-IR) 5 mg every 4 hours as needed 18 18 ued tabletIndications: Earliest Fill Date: Hypercalcemia 04/15/17 polyethylene glycol 3350 Take 1 packet by mouth 12 each 3 04/15/19 10/26/19 Discontin (MIRALAX) 17 g daily. 18 18 ued packetIndications: Hypercalcemia senna/docusate Take 1 tablet by mouth 60 tablet 0 04/15/19 10/26/19 Discontin (SENOKOT-S) 8.6/50 mg twice daily. 18 18 ued tabletIndications: Hypercalcemia Active Problems Problem Noted Date Hyperparathyroidism (HCC) 09/23/2016 Hypercalcemia 08/23/2016 History of renal calculi 08/23/2016 Resolved Problems Problem Noted Date Resolved Date Hyperparathyroidism (HCC) 08/23/2016 09/22/2016 Encounters Date Type Specialty Care Team Description 10/26/2017 Telephone Oncology Rock Barker MD Results 10/25/2017 Office Visit Oncology Rock Barker MD Hyperparathyroidism (HCC) 10/25/2017 Orders Only Oncology Rock Barker MD from Last 3 Months Family History Medical History Relation Name Comments Heart Disease Brother High Cholesterol Brother Heart Attack Father Hypertension Father Stroke Father Heart Disease Maternal Grandfather Heart Disease Paternal Aunt Hypertension Paternal Grandmother Heart Disease Paternal Uncle Relation Name Status Comments Brother Father Maternal Grandfather Mother Alive Paternal Aunt Paternal Grandmother Paternal Uncle Social History Tobacco Use Types Packs/Day Years Used Date Never Smoker Smokeless Tobacco: Never Used Alcohol Use Drinks/Week oz/Week Comments No Sex Assigned at Date Recorded Not on file Last Filed Vital Signs Vital Sign Reading Time Taken Blood Pressure 135/73 10/25/2017 1:28 PM CDT Pulse 72 10/25/2017 1:28 PM CDT Temperature 36.8 C (98.3 F) 10/25/2017 1:28 PM CDT Respiratory Rate 18 10/25/2017 1:29 PM CDT Oxygen Saturation 100% 10/25/2017 1:28 PM CDT Inhaled Oxygen - - Concentration Weight 105.9 kg (233 lb 6.4 oz) 10/25/2017 1:28 PM CDT Height 167.6 cm (5' 6") 10/25/2017 1:28 PM CDT Body Mass Index 37.67 10/25/2017 1:28 PM CDT Plan of Treatment Health Maintenance Due Date Last Done Comments HEPATITIS C SCREENING 1955 PHYSICAL (COMPREHENSIVE) 1962 EXAM PERTUSSIS VACCINE 1966 HIV SCREENING 1970 TETANUS VACCINE 1972 COLORECTAL CANCER 2005 SCREENING SHINGLES RECOMBINANT 2005 VACCINE (1 of 2) INFLUENZA VACCINE 12/19/2017 Results * PARATHYROID HORMONE (10/25/2017 1:00 PM) PTH Hormone 44 14 - 64 pg/mL [facility] Comment: Interpretive GuideIntact PTH Calcium ------ ------- Normal ParathyroidNormal Normal HypoparathyroidismLow or Low NormalLow Hyperparathyroidism Primary Normal or High High SecondaryH igh Normal or Low Tertiary High High Non-Parathyroid HypercalcemiaLow or Low NormalHigh REPORT COMMENT: FASTING:NO Test Performed at: [facility] [id number] [facility], [id number] JONATHON HERRMANN DO,MPH Performing Organization Address [facility] Phone Number [facility] [address] [place] [address] * 25-OH VITAMIN D (D2 + D3) (10/25/2017 12:41 PM) Vitamin D(25-OH)Total 42 30 - 100 ng/mL [facility] Comment: 25-OHD3 indicates both endogenous production and supplementation. 25-OHD2 is an indicator of exogenous sources, such as diet or supplementation. Therapy is based on measurement of Total 25-OHD, with levels <20 ng/mL indicative of Vitamin D deficiency, while levels between 20 ng/mL and 30 ng/mL suggest insufficiency. Optimal levels are > or=30 ng/mL. VITAMIN D3,25-OH 42Comment: Reference Range: See Below ng/mL [facility] Not established Vitamin D2,25-OH <4 See Below ng/mL [facility] Comment: Reference Range: Not established This test was developed and its analytical performance characteristics have been determined by [employer] [facility]. It has not been cleared or approved by the US Food and Drug Administration. This assay has been validated pursuant to the CLIA regulations and is used for clinical purposes. Test Performed at: [facility] [place] [id number] [place] [address], [id number] SHERYL CONDON MD,PHD Performing Organization Address [facility] Phone Number [facility] [address] [place] [address] * CALCIUM (10/25/2017 12:41 PM) Calcium 9.0 8.6 - 10.3 mg/dL [facility] Comment: Test Performed at: [employer] [address] [place], [id number] JONATHON HERRMANN DO,MPH Performing Organization Address City/State/Zipcode Phone Number [facility] [address] [place] [address] from Last 3 Months
--- OUTSIDE RECORDS SUMMARY | 2017-11-04 10:29 | XMS REPORT | Continuity of Care Document ---
Author Author [facility] Organization [facility] Address Unknown Phone Unavailable Allergies Active Description Code Type Severity Reaction Onset Reported/Identified Relationship to Patient Clinical Status Yes Sulfa (Sulfonamide Antibiotics) [id number] Drug Allergy Unknown N/A 2008 Medications There is no data. Problems Date Dx Coded Attending Type Code Diagnosis Diagnosed By 02/17/1507 HUDSON TELLO DO Ot Z47.89 ENCOUNTER FOR OTHER ORTHOPEDIC AFTERCARE 01/11/2011 Ot 271.3 DISACCHARIDASE DEF/MALAB 01/11/2011 Ot 277.7 DYSMETABOLIC SYNDROME X 01/11/2011 Ot 278.00 OBESITY, NOS 01/11/2011 Ot 401.9 HYPERTENSION NOS 01/11/2011 Ot 410.71 AC MYOCARDIAL INFARCT,SUBENDO INFARCT,IN 01/11/2011 Ot 414.01 CORONARY ATHEROSCLEROSIS OF [place] CORON 01/11/2011 Ot 414.8 CHR ISCHEMIC HRT DIS NEC 01/11/2011 Ot V85.38 BODY MASS INDEX 38.0-38.9, ADULT 12/14/2012 JOSE HALL DO Ot 780.4 DIZZINESS AND GIDDINESS 06/29/2013 DANYA BRANDON FACC, KASEY FACP CCDS Ot 272.4 HYPERLIPIDEMIA NEC/NOS 06/29/2013 DANYA BRANDON FACC, KASEY FACP CCDS Ot 278.00 OBESITY, NOS 06/29/2013 DANYA BRANDON FACC, KASEY FACP CCDS Ot 412 OLD MYOCARDIAL INFARCT 06/29/2013 DANYA BRANDON FACC, KASEY FACP CCDS Ot 414.01 CORONARY ATHEROSCLEROSIS OF [place] CORON 06/29/2013 DANYA BRANDON FACC, KASEY FACP CCDS Ot 428.0 CONGESTIVE HEART FAILURE NOS 06/29/2013 DANYA BRANDON FACC, KASEY FACP CCDS Ot 428.22 CHRONIC SYSTOLIC HRT FAILURE 06/29/2013 DANYA BRANDON FACC, KASEY FACP CCDS Ot 780.2 SYNCOPE AND COLLAPSE 06/29/2013 DANYA BRANDON FACC, KASEY FACP CCDS Ot 780.4 DIZZINESS AND GIDDINESS 06/29/2013 DANYA BRANDON [facility], KASEY HIDALGO CCDS Ot 786.05 SHORTNESS OF BREATH 06/29/2013 DANYA BRANDON [facility], [facility] CCDS Ot V45.82 PERCUTANEOUS TRANSLUM CORON ANGIOPLASTY 06/29/2013 DANYA BRANDON [facility], KASEY HIDALGO CCDS Ot V85.36 BODY MASS INDEX 36.0-36.9, ADULT 09/26/2013 SANDER BRANDON, FORTUNATO Orellana Ot V58.61 ANTICOAGULANTS,LT,CURRENT USE 09/26/2013 FORTUNATO BOUCHER MD Ot V58.73 AFTERCARE POST SURGERY CIRULATORY SYSTEM 03/12/2014 MARTINA BRANDON, MAU Mix Ot 553.21 INCISIONAL HERNIA 03/17/2014 RODDY MEYER MD Ot 272.0 PURE HYPERCHOLESTEROLEM 03/17/2014 RODDY MEYER MD Ot 338.18 OTHER ACUTE POSTOPERATIVE PAIN 03/17/2014 RODDY MEYER MD Ot 414.00 CORON ATHEROSCLER NOS TYPE VESSEL, NATIV 03/17/2014 RODDY MEYER MD Ot 536.2 PERSISTENT VOMITING 03/17/2014 RODDY MEYER MD Ot 560.1 PARALYTIC ILEUS 03/17/2014 RODDY MEYER MD Ot 997.49 OTHER DIGESTIVE SYSTEM COMPLICATIONS 03/17/2014 RODDY MEYER MD Ot E947.9 ADV EFF MEDICINAL NOS 03/17/2014 RODDY MEYER MD Ot V45.81 AORTOCORONARY BYPASS 03/17/2014 RODDY MEYER MD Ot 272.0 03/17/2014 RODDY MEYER MD Ot 338.18 03/17/2014 RODDY MEYER MD Ot 414.00 03/17/2014 RODDY MEYER MD Ot 536.2 03/17/2014 RODDY MEYER MD Ot 560.1 03/17/2014 RODDY MEYER MD Ot 997.49 03/17/2014 RODDY MEYER MD Ot E947.9 03/17/2014 RODDY MEYER MD Ot V45.81 03/26/2014 MARTINA BRANDON, MAU Mix Ot 553.20 03/26/2014 MARTINA BRANDON, MAU Mix Ot V72.63 03/26/2014 MAU MACK MD Ot V74.8 09/03/2014 SANDER BRANDON, FORTUNATO Orellana Ot 401.9 09/03/2014 SANDER BRANDON, FORTUNATO Orellana Ot 414.00 09/03/2014 SANDER BRANDON, FORTUNATO Orellana Ot 786.50 09/03/2014 SANDER BRANDON, FORTUNATO Orellana Ot 790.29 03/19/2015 Ot 425.4 03/19/2015 Ot 414.01 03/19/2015 Ot 414.8 03/19/2015 Ot V45.82 03/19/2015 ANNIE BRANDON, COURTNEY Ot 410.90 03/19/2015 ANNIE BRANDON, COURTNEY Ot 414.00 03/19/2015 ANNIE BRANDON, COURTNEY Ot V45.81 03/19/2015 MARTINA BRANDON, MAU Mix Ot 553.20 03/19/2015 MARTINA BRANDON, MAU Mix Ot V72.63 03/19/2015 MARTINA BRANDON, MAU Mix Ot V74.8 03/19/2015 SANDER BRANDON, FORTUNATO Orellana Ot 401.9 03/19/2015 SANDER BRANDON, FORTUNATO Orellana Ot 414.00 03/19/2015 SANDER BRANDON, FORTUNATO Orellana Ot 786.50 03/19/2015 SANDER BRANDON, FORTUNATO Orellana Ot 790.29 03/28/2015 JACOB BRANDON, JILLIAN Bradford Ot K31.9 03/28/2015 JACOB BRANDON, JILLIAN Bradford Ot K44.9 04/09/2015 JACOB BRANDON, JILLIAN Bradford Ot K31.9 04/09/2015 JACOB BRANDON, JILLIAN Bradford Ot K44.9 08/01/2015 Ot 425.4 PRIM CARDIOMYOPATHY NEC 08/01/2015 Ot 414.01 CORONARY ATHEROSCLEROSIS OF [place] CORON 08/01/2015 Ot 414.8 CHR ISCHEMIC HRT DIS NEC 08/01/2015 Ot V45.82 PERCUTANEOUS TRANSLUM CORON ANGIOPLASTY 08/01/2015 ANNIE BRANDON, COURTNEY Ot 410.90 ACU MYOCARD INFARCTION,UNSPEC SITE, EPIS 08/01/2015 ANNIE BRANDON, COURTNEY Ot 414.00 CORON ATHEROSCLER NOS TYPE VESSEL, NATIV 08/01/2015 ANNIE BRANDON, COURTNEY Ot V45.81 AORTOCORONARY BYPASS 08/01/2015 MARTINA BRANDON, MAU Mix Ot 553.20 VENTRAL HERNIA NOS 08/01/2015 MARTINA BRANDON, MAU Mix Ot V72.63 PRE-PROCEDURAL LABORATORY EXAMINATION 08/01/2015 MARTINA BRANDON, MAU Mix Ot V74.8 SCREEN-BACTERIAL DIS NEC 08/01/2015 SANDER BRANDON, FORTUNATO Orellana Ot 401.9 HYPERTENSION NOS 08/01/2015 SANDER BRANDON, FORTUNATO Orellana Ot 414.00 CORON ATHEROSCLER NOS TYPE VESSEL, NATIV 08/01/2015 FORTUNATO BOUCHER MD Ot 786.50 CHEST PAIN NOS 08/01/2015 FORTUNATO BOUCHER MD Ot 790.29 OTHER ABNORMAL GLUCOSE 08/01/2015 JILLIAN JAMES MD Ot R10.13 EPIGASTRIC PAIN 08/01/2015 JILLIAN JAMES MD Ot Z01.818 ENCOUNTER FOR OTHER PREPROCEDURAL EXAMIN 08/01/2015 JILLIAN JAMES MD Ot K31.9 DISEASE OF STOMACH AND DUODENUM, UNSPECI 08/01/2015 JILLIAN JAMES MD Ot K44.9 DIAPHRAGMATIC HERNIA WITHOUT OBSTRUCTION 03/11/2017 ANNIE BRANDON, COURTNEY Ot 410.90 ACU MYOCARD INFARCTION,UNSPEC SITE, EPIS 03/11/2017 ANNIE BRANDON, COURTNEY Ot 414.00 CORON ATHEROSCLER NOS TYPE VESSEL, NATIV 03/11/2017 COURTNEY VALENCIA MD Ot V45.81 AORTOCORONARY BYPASS 03/11/2017 MARTINA BRANDON, MAU Mix Ot 553.20 VENTRAL HERNIA NOS 03/11/2017 MARTINA BRANDON, MAU Mix Ot V72.63 PRE-PROCEDURAL LABORATORY EXAMINATION 03/11/2017 MARTINA BRANDON, MAU Mix Ot V74.8 SCREEN-BACTERIAL DIS NEC 03/11/2017 SANDER BRANDON, FORTUNATO Orellana Ot 401.9 HYPERTENSION NOS 03/11/2017 SANDER BRANDON, FORTUNATO Orellana Ot 414.00 CORON ATHEROSCLER NOS TYPE VESSEL, NATIV 03/11/2017 FORTUNATO BOUCHER MD Ot 786.50 CHEST PAIN NOS 03/11/2017 FORTUNATO BOUCHER MD Ot 790.29 OTHER ABNORMAL GLUCOSE 03/11/2017 JILLIAN JAMES MD Ot R10.13 EPIGASTRIC PAIN 03/11/2017 JILLIAN JAMES MD Ot Z01.818 ENCOUNTER FOR OTHER PREPROCEDURAL EXAMIN 03/11/2017 JILLIAN JAMES MD Ot K31.9 DISEASE OF STOMACH AND DUODENUM, UNSPECI 03/11/2017 JILLIAN JAMES MD Ot K44.9 DIAPHRAGMATIC HERNIA WITHOUT OBSTRUCTION 03/17/2017 HUDSON TELLO DO Najma Ot Z47.89 ENCOUNTER FOR OTHER ORTHOPEDIC AFTERCARE 04/01/2017 HUDSON TELLO DO Najma Ot Z47.89 ENCOUNTER FOR OTHER ORTHOPEDIC AFTERCARE Procedures Code Description Performed By Performed On 00.40 01/08/2011 00.45 01/08/2011 00.66 01/08/2011 36.07 01/08/2011 37.22 01/08/2011 88.53 01/08/2011 88.56 01/08/2011 00.41 01/10/2011 00.47 01/10/2011 00.66 01/10/2011 36.07 01/10/2011 88.56 01/10/2011 Results There is no data. Encounters ACCT No. Visit Date/Time Discharge Status Pt. Type Provider Facility Loc./Unit Complaint [id number] 04/20/2017 08:22:00 05/05/2017 15:08:00 DIS Outpatient HUDSON TELLO DO [facility] REHAB S/P R RCR, SAD AND DEBRIDEMENT [id number] 12/23/2016 14:00:00 12/23/2016 23:59:59 CLS Preadmit ELI IBRAHIM [facility] RAD RUPTURED BICEPS TENDON [id number] 11/09/2016 11:05:00 11/09/2016 23:59:59 CLS Preadmit FORTUNATO BOUCHER MD [facility] CARD CAD I25.10,HTN I10 [id number] 11/09/2016 11:04:00 11/09/2016 23:59:59 CLS Preadmit FORTUNATO BOUCHER MD [facility] CARD CAD I25.10,HTN I10 [id number] 03/20/2015 07:09:00 03/20/2015 23:59:59 CLS Outpatient JILLIAN JAMES MD [facility] SDC UPPER GASTRIC PAIN [id number] 03/19/2015 13:47:00 03/19/2015 23:59:59 CLS Outpatient JILLIAN JAMES MD [facility] PREOP UPPER GASTRIC PAIN [id number] 08/07/2014 10:30:00 08/07/2014 23:59:59 CLS Outpatient FORTUNATO BOUCHER MD [facility] CARD CAD,CP,HTN [id number] 03/14/2014 02:10:00 03/17/2014 12:15:00 DIS Inpatient RODDY MEYER MD [facility] SURGICAL POST OP PAIN, INTRACTABLE N/V,COLONIC ILEUS [id number] 03/12/2014 06:00:00 03/12/2014 13:25:00 DIS Outpatient MAU MACK MD [facility] SDC VENTAL HERNIA [id number] 03/08/2014 11:57:00 03/08/2014 23:59:59 CLS Outpatient MAU MACK MD [facility] PREOP VENTAL HERNIA [id number] 08/31/2013 12:05:00 09/26/2013 12:35:00 DIS Outpatient FORTUNATO BOUCHER MD [facility] CR STATUS POST ACBX2 [id number] 07/11/2013 10:20:00 07/11/2013 23:59:59 CLS Outpatient COURTNEY VALENCIA MD [facility] HH CAD, CABG X2, [place] [id number] 06/29/2013 02:45:00 06/29/2013 13:55:00 DIS Outpatient DANYA BRANDON FACCKASEY FACP CCDS [facility] CATH CHEST PAIN, SYNCOPE [id number] 12/14/2012 12:52:00 12/14/2012 15:38:00 DIS Emergency JOSE HALL DO [facility] ER DIZZINESS/WEAKNESS [id number] 05/07/2011 09:00:00 Document Registration [id number] 01/08/2011 23:41:00 Document Registration [id number] 03/16/2010 09:08:00 Document Registration
--- OUTSIDE RECORDS SUMMARY | 2017-11-04 10:29 | XMS REPORT | Encounter Summary ---
Author Author [facility] Organization [facility] Address Unknown Phone Unavailable Care Team Providers Care Blueprint Trimmer Name Role Phone Sonny Merida MD PCP Reason for Visit * Reason Comments Heme/Onc Care Encounter Details Date Type Department Care Team Description 10/25/2017 Office Visit [facility] Rock Barker MD [facility] Cancer Center - WW Exam [address] [facility] [address] [place] [address] [place] [address] [phone] Social History Tobacco Use Types Packs/Day Years Used Date Never Smoker Smokeless Tobacco: Never Used Alcohol Use Drinks/Week oz/Week Comments No Sex Assigned at Date Recorded Not on file as of this encounter Last Filed Vital Signs Vital Sign Reading [...] Mass Index 37.67 10/25/2017 1:28 PM CDT in this encounter Functional Status Functional Status Response [...] on fileas of this encounter Visit Diagnoses Diagnosis Hyperparathyroidism (HCC) Hyperparathyroidism, unspecified
--- OUTSIDE RECORDS SUMMARY | 2017-11-04 10:52 | XMS REPORT | Clinical Summary ---
Author Author [facility] Address Unknown Phone Unavailable Care Team Providers Care Poultry Hatchery Laborer Name Role Phone Reese Son MD PP [...]
--- OUTSIDE RECORDS SUMMARY | 2017-11-04 10:52 | XMS REPORT | Clinical Summary ---
Author Author [facility] Organization [facility] Address Unknown Phone Unavailable Care Team Providers Care Transcription Manager Name Role Phone Sonny Merida MD PCP Source Comments Some departments are not documenting in the electronic medical record. If you do not see the information that you expected, contact Release of Information in the Health Information Management department at [phone] for further assistance in locating additional records.[facility] Allergies Active Allergy Reactions Severity [...] PTH Hormone 44 14 - 64 pg/mL [employer] Comment: Interpretive GuideIntact PTH Calcium ------ ------- Normal ParathyroidNormal Normal HypoparathyroidismLow or Low NormalLow Hyperparathyroidism Primary Normal or High High SecondaryH igh Normal or Low Tertiary High High Non-Parathyroid HypercalcemiaLow or Low NormalHigh REPORT COMMENT: FASTING:NO Test Performed at: [facility] [address] [facility], [id number] JONATHON HERRMANN DO,MPH Performing Organization Address [facility] Phone Number [employer] [address] [place] [address] * 25-OH VITAMIN D (D2 + D3) (10/25/2017 12:41 PM) Vitamin D(25-OH)Total 42 30 - 100 ng/mL [employer] Comment: 25-OHD3 indicates both endogenous production and supplementation. 25-OHD2 is an indicator of exogenous sources, such as diet or supplementation. Therapy is based on measurement of Total 25-OHD, with levels <20 ng/mL indicative of Vitamin D deficiency, while levels between 20 ng/mL and 30 ng/mL suggest insufficiency. Optimal levels are > or=30 ng/mL. VITAMIN D3,25-OH 42Comment: Reference Range: See Below ng/mL [facility] [employer] [facility] Not established Vitamin D2,25-OH <4 See Below ng/mL [employer] [facility] Comment: Reference Range: Not established This test was developed and its analytical performance characteristics have been determined by [facility]. It has not been cleared or approved by the US Food and Drug Administration. This assay has been validated pursuant to the CLIA regulations and is used for clinical purposes. Test Performed at: [employer] [facility] [place] [id number] [place] [address], [id number] SHERYL CONDON MD,PHD Performing Organization Address [facility] Phone Number [employer] [address] [place] [address] * CALCIUM (10/25/2017 12:41 PM) Calcium 9.0 8.6 - 10.3 mg/dL [employer] Comment: Test Performed at: [facility] [address], [id number] JONATHON HERRMANN DO,MPH Performing Organization Address City/State/Zipcode Phone Number [employer] [address] [place] [address] from Last 3 Months
--- OUTSIDE RECORDS SUMMARY | 2017-11-04 10:53 | XMS REPORT | Encounter Summary ---
Author Author [facility] Organization [facility] Address Unknown Phone Unavailable Care Team Providers Care Souvenir And Novelty Maker Name Role Phone Sonny Merida MD PCP Reason for Visit * Reason Comments Heme/Onc Care Encounter Details Date Type Department Care Team Description 10/25/2017 Office Visit [facility] Rock Barker MD [facility] ([facility]) [facility] Exam [address] [facility] [address] [place] [address] [place] [address] [phone] Social History Tobacco Use Types Packs/Day Years [...]
--- OUTSIDE RECORDS SUMMARY | 2017-11-04 10:53 | XMS REPORT | Continuity of Care Document ---
Author Author [facility] Organization [facility] Address Unknown Phone Unavailable Allergies Active Description Code Type Severity Reaction Onset Reported/Identified Relationship to Patient Clinical Status Yes Sulfa (Sulfonamide Antibiotics) [id number] Drug Allergy Unknown N/A 2008 Medications There [...] INFARCT,IN 01/11/2011 Ot 414.01 CORONARY ATHEROSCLEROSIS OF [place] CORON 01/11/2011 Ot 414.8 CHR ISCHEMIC HRT [...] FACP CCDS Ot 414.01 CORONARY ATHEROSCLEROSIS OF [place] CORON 06/29/2013 DANYA BRANDON FACC, KASEY FACP CCDS Ot 428.0 CONGESTIVE HEART FAILURE NOS 06/29/2013 DANYA BRANDON FACC, KASEY FACP CCDS Ot 428.22 CHRONIC SYSTOLIC HRT FAILURE 06/29/2013 DANYA BRANDON FACC, KASEY FACP CCDS Ot 780.2 SYNCOPE AND COLLAPSE 06/29/2013 DANYA BRANDON FACC, KASEY FACP CCDS Ot 780.4 DIZZINESS AND GIDDINESS 06/29/2013 DANYA BRANDON [facility], KASEY [place] CCDS Ot 786.05 SHORTNESS OF BREATH 06/29/2013 DANYA BRANDON [facility], [facility] CCDS Ot V45.82 PERCUTANEOUS TRANSLUM CORON ANGIOPLASTY 06/29/2013 DANYA BRANDON [facility], KASEY [place] CCDS Ot V85.36 BODY MASS [...] NEC 08/01/2015 Ot 414.01 CORONARY ATHEROSCLEROSIS OF [place] CORON 08/01/2015 Ot 414.8 CHR ISCHEMIC HRT [...] Status Pt. Type Provider Facility Loc./Unit Complaint [id number] 04/20/2017 08:22:00 05/05/2017 15:08:00 DIS Outpatient HUDSON TELLO DO [facility] REHAB S/P R RCR, SAD AND DEBRIDEMENT [id number] 12/23/2016 14:00:00 12/23/2016 23:59:59 CLS Preadmit ELI IBRAHIM [facility] RAD RUPTURED BICEPS TENDON [id number] 11/09/2016 11:05:00 11/09/2016 23:59:59 CLS Preadmit FORTUNATO BOUCHER MD [facility] CARD CAD I25.10,HTN I10 [id number] 11/09/2016 11:04:00 11/09/2016 23:59:59 CLS Preadmit FORTUNATO BOUCHER MD [facility] CARD CAD I25.10,HTN I10 [id number] 03/20/2015 07:09:00 03/20/2015 23:59:59 CLS Outpatient JILLIAN JAMES MD [facility] SDC UPPER GASTRIC PAIN [id number] 03/19/2015 13:47:00 03/19/2015 23:59:59 CLS Outpatient JILLIAN JAMES MD [facility] PREOP UPPER GASTRIC PAIN [id number] 08/07/2014 10:30:00 08/07/2014 23:59:59 CLS Outpatient FORTUNATO BOUCHER MD [facility] CARD CAD,CP,HTN [id number] 03/14/2014 02:10:00 03/17/2014 12:15:00 DIS Inpatient RODDY MEYER MD [facility] SURGICAL POST OP PAIN, INTRACTABLE N/V,COLONIC ILEUS [id number] 03/12/2014 06:00:00 03/12/2014 13:25:00 DIS Outpatient MAU MACK MD [facility] SDC VENTAL HERNIA [id number] 03/08/2014 11:57:00 03/08/2014 23:59:59 CLS Outpatient MAU MACK MD [facility] PREOP VENTAL HERNIA [id number] 08/31/2013 12:05:00 09/26/2013 12:35:00 DIS Outpatient FORTUNATO BOUCHER MD [facility] CR STATUS POST [id number] 07/11/2013 10:20:00 07/11/2013 23:59:59 CLS Outpatient COURTNEY VALENCIA MD [facility] HH CAD, CABG X2, DE [id number] 06/29/2013 02:45:00 06/29/2013 13:55:00 DIS Outpatient DANYA BRANDON FACCKASEY FACP CCDS [facility] CATH CHEST PAIN, SYNCOPE [id number] 12/14/2012 12:52:00 12/14/2012 15:38:00 DIS Emergency JOSE HALL DO [facility] ER DIZZINESS/WEAKNESS [id number] 05/07/2011 09:00:00 Document Registration [id number] 01/08/2011 23:41:00 Document Registration [id number] 03/16/2010 09:08:00 Document Registration
--- OUTSIDE RECORDS SUMMARY | 2017-11-04 10:53 | XMS REPORT | Encounter Summary ---
Author Author [facility] Organization [facility] Address Unknown Phone Unavailable Care Team Providers Care Supervisor Claims Name Role Phone Sonny Merida MD PCP Reason for Visit * Reason Comments Results Encounter Details Date Type Department Care Team Description 10/26/2017 Telephone [facility] Rock Barker MD Results [facility] Exam [address] [facility] [address] [place] [address] [place] [address] [phone] Social History Tobacco Use Types Packs/Day Years [...]
--- OUTSIDE RECORDS SUMMARY | 2017-11-04 10:53 | XMS REPORT | Encounter Summary ---
Author Author [facility] Organization [facility] Address Unknown Phone Unavailable Care Team Providers Care Sales Project Engineer Name Role Phone Sonny Merida MD PCP Encounter Details Date Type Department Care Team Description 10/25/2017 Orders Only [facility] Rock Barker MD [facility] Exam [address] [facility] [address] [place] [address] [place] [address] [phone] Social History Tobacco Use Types Packs/Day Years [...] PTH Hormone 44 14 - 64 pg/mL [employer] Comment: Interpretive GuideIntact PTH Calcium ------ ------- Normal ParathyroidNormal Normal HypoparathyroidismLow or Low NormalLow Hyperparathyroidism Primary Normal or High High SecondaryH igh Normal or Low Tertiary High High Non-Parathyroid HypercalcemiaLow or Low NormalHigh REPORT COMMENT: FASTING:NO Test Performed at: [facility] [address] [place], [id number] JONATHON HERRMANN DO,MPH Performing Organization Address [facility] Phone Number [facility] [address] [employer] [place] [address] * 25-OH VITAMIN D (D2 + D3) (10/25/2017 12:41 PM) Vitamin D(25-OH)Total 42 30 - 100 ng/mL [facility] Comment: 25-OHD3 indicates both endogenous production and supplementation. 25-OHD2 is an indicator of exogenous sources, such as diet or supplementation. Therapy is based on measurement of Total 25-OHD, with levels <20 ng/mL indicative of Vitamin D deficiency, while levels between 20 ng/mL and 30 ng/mL suggest insufficiency. Optimal levels are > or=30 ng/mL. VITAMIN D3,25-OH 42Comment: Reference Range: See Below ng/mL [facility] Not established Vitamin D2,25-OH <4 See Below ng/mL [employer] Comment: Reference Range: Not established This test was developed and its analytical performance characteristics have been determined by [employer] [facility]. It has not been cleared or approved by the US Food and Drug Administration. This assay has been validated pursuant to the CLIA regulations and is used for clinical purposes. Test Performed at: [facility] [id number] SHERYL CONDON MD,PHD Performing Organization Address [facility] Phone Number [facility] [address] [place] [address] * CALCIUM (10/25/2017 12:41 PM) Calcium 9.0 8.6 - 10.3 mg/dL [facility] Comment: Test Performed at: [facility] [address] [place], [id number] JONATHON HERRMANN DO,MPH Performing Organization Address [facility] Phone Number [facility] [address] [place] [address] in this encounter Visit Diagnoses Not on filein this encounter
== END 2017-11-03 15:45 | disposition home or self-care (01) ==
LOC: EDUNIT# 05:43 → ER 05:45 → ICU 07:00
PROVIDERS: ADMIT Internal Medicine; ATTEND Internal Medicine
DX: R07.9 Chest pain, unspecified (principal); I25.10 Atherosclerotic heart disease of native coronary artery without angina pectoris; I10 Essential (primary) hypertension; E78.5 Hyperlipidemia, unspecified; Z95.1 Presence of aortocoronary bypass graft; Z95.5 Presence of coronary angioplasty implant and graft; F41.9 Anxiety disorder, unspecified; Z82.49 Family history of ischemic heart disease and other diseases of the circulatory system
CPT/HCPCS: 36415; 78452; 80053; 82150; 82550; 82553; 83690; 83735; 83874; 83880; 84484; 85025; 85610; 85730; 93005; 93017; 93041

== ENCOUNTER 2020-09-17 10:50 | Day surgery (SDC) | payer BC, MEDICARE ==
[~2020-09-17] VITALS: Ht 170 cm; Wt 105.4 kg
[2020-09-17] VITALS (7 sets, daily range): BP systolic 125–182; BP diastolic 68–91
[~2020-09-17 10:50] MED LIST changes: +ASPI-1238 PO; +CHOL20003 PO; +MULT-35 PO; +PRAV40TA2 PO
[2020-09-17] MEDS ORDERED: ASPIRIN 81 MG CHEW (CHILDREN'S ASA) PO ONE (11:00)
[2020-09-17] MEDS ORDERED: NITROGLYCERIN 0.4 MG SL TABS BTL 25'S SL PRN ×2 (11:00→16:00)
[2020-09-17 11:10] LABS: BASOPHILS % (AUTO) 0 % (0-10); EOSINOPHILS # (AUTO) 0.1 10^3/uL (0.0-0.3); EOSINOPHILS % (AUTO) 2 % (0-10); HEMATOCRIT 44 % (40-54); HEMOGLOBIN 14.6 g/dL (13.3-17.7); LYMPHOCYTES # (AUTO) 1.3 10^3/uL (1.0-4.0); LYMPHOCYTES % (AUTO) 24 % (12-44); MEAN CORPUSCULAR HEMOGLOBIN 30 pg (25-34); MEAN CORPUSCULAR HGB CONC 33 g/dL (32-36); MEAN CORPUSCULAR VOLUME 89 fL (80-99); MEAN PLATELET VOLUME 9.7 fL (9.0-12.2); MONOCYTES # (AUTO) 0.4 10^3/uL (0.0-1.0); MONOCYTES % (AUTO) 8 % (0-12); NEUTROPHILS # (AUTO) 3.6 10^3/uL (1.8-7.8); NEUTROPHILS % (AUTO) 66 % (42-75); PLATELET COUNT 197 10^3/uL (130-400); WHITE BLOOD COUNT 5.5 10^3/uL (4.3-11.0)
--- NOTE | 2020-09-17 11:26 | ED Chest Pain ---
General Chief Complaint: Chest Pain Stated Complaint: CP Nursing Triage Note: ARRIVED VIA AMB WITH COMPLAINTS OF CHEST PAIN SINCE SAT. STATES HE FEELS WEAK AND JUST WANTS TO SLEEP. STATES THE PAIN IS EPIGASTRIC THAT GOES INTO HIS BACK. Source: patient Exam Limitations: no limitations History of Present Illness Date Seen by Provider: Sep 17, 2020 Time Seen by Provider: 10:55 Initial Comments This 65-year-old gentleman with known coronary artery disease presents to the emergency room with about 5 days of intermittent left-sided chest pain that radiates to the right shoulder. He has tenderness to palpation over the area of his CABG incision. He does not describe any cough, fever, shortness of breath, or vomiting. He does feel lightheaded and quite fatigued. He is notably hypertensive with a systolic blood pressure of 200. He states he normally does not have hypertension and is not treated for hypertension. He had two-vessel CABG several years ago. His most recent stress test was in 2018 had demonstrated a reversible decrease in uptake in the inferior and inferior lateral wall. Allergies and Home Medications Allergies Coded Allergies: Sulfa (Sulfonamide Antibiotics) (Verified Allergy, Unknown, 03/25/08) Home Medications Aspirin 81 Mg Tablet.dr, 81 MG PO DAILY, (Reported) Cholecalciferol (Vitamin D3) 2,000 Unit Capsule, 2,000 UNIT PO DAILY, (Reported) Multivitamin 1 Each Tablet, 1 TAB PO DAILY, (Reported) [place] 3 Polyunsat Fatty Acids 1,000 Mg Cap, 1,000 MG PO TID, (Reported) Pravastatin Sodium 40 Mg Tablet, 40 MG PO HS, (Reported) Patient Home Medication List Home Medication List Reviewed: Yes Review of Systems Review of Systems Constitutional: see HPI EENTM: No Symptoms Reported Respiratory: No Symptoms Reported Cardiovascular: See HPI, Lightheadedness Gastrointestinal: No Symptoms Reported Genitourinary: No Symptoms Reported Musculoskeletal: no symptoms reported Skin: no symptoms reported Psychiatric/Neurological: No Symptoms Reported Endocrine: No Symptoms Reported Hematologic/Lymphatic: No Symptoms Reported Past Dzivjio-Prfeei-Zozuds Hx Patient Social History Smoking Status: Never a Smoker Substance use?: No Alcohol Use?: No Immunizations Up To Date Tetanus Booster (TDap): Unknown Seasonal Allergies Seasonal Allergies: No Past Medical History Surgeries: Yes (CYST REMOVED FROM URETHRA, UMBILICAL HERNIA REPAIR X2, parathyroidectomy) CABG, Coronary Stent, Gallbladder Respiratory: No Cardiac: Yes (STENTS AND CABG) Coronary Artery Disease, High Cholesterol, Hypertension Neurological: Yes Reproductive Disorders: No Sexually Transmitted Disease: No HIV/AIDS: No Genitourinary: Yes Kidney Stones Gastrointestinal: Yes Abdominal Hernia, Gall Bladder Disease Musculoskeletal: No Endocrine: No HEENT: No Cancer: No Psychosocial: Yes Anxiety Integumentary: No Blood Disorders: No Adverse Reaction/Blood Tranf: No Physical Exam Vital Signs Vital Signs - First Documented 09/17/20 10:50 Temp 36.2 Pulse 75 Resp 16 B/P (MAP) 200/95 (130) Pulse Ox 96 O2 Delivery Room Air Capillary Refill : Less Than 3 Seconds Height, Weight, BMI Height: 5'6.00" Weight: 204lbs. 0.6oz. 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 Norm as Tested Skin: Normal Color, Warm/Dry Progress/Results/Core Measures Results/Orders Lab Results Laboratory Tests Test 09/17/20 11:05 Range/Units White Blood Count 5.5 4.3-11.0 10^3/uL Red Blood Count 4.95 4.30-5.52 10^6/uL Hemoglobin 14.6 13.3-17.7 g/dL Hematocrit 44 40-54 % Mean Corpuscular Volume 89 80-99 fL Mean Corpuscular Hemoglobin 30 25-34 pg Mean Corpuscular Hemoglobin Concent 33 32-36 g/dL Red Cell Distribution Width 13.2 10.0-14.5 % Platelet Count 197 130-400 10^3/uL Mean Platelet Volume 9.7 9.0-12.2 fL Immature Granulocyte % (Auto) 0 % Neutrophils (%) (Auto) 66 42-75 % Lymphocytes (%) (Auto) 24 12-44 % Monocytes (%) (Auto) 8 0-12 % Eosinophils (%) (Auto) 2 0-10 % Basophils (%) (Auto) 0 0-10 % Neutrophils # (Auto) 3.6 1.8-7.8 10^3/uL Lymphocytes # (Auto) 1.3 1.0-4.0 10^3/uL Monocytes # (Auto) 0.4 0.0-1.0 10^3/uL Eosinophils # (Auto) 0.1 0.0-0.3 10^3/uL Basophils # (Auto) 0.0 0.0-0.1 10^3/uL Immature Granulocyte # (Auto) 0.0 0.0-0.1 10^3/uL Prothrombin Time 12.8 12.2-14.7 SEC INR Comment 0.9 0.8-1.4 Activated Partial Thromboplast Time 30 24-35 SEC Sodium Level 139 135-145 MMOL/L Potassium Level 4.4 3.6-5.0 MMOL/L Chloride Level 104 98-107 MMOL/L Carbon Dioxide Level 26 21-32 MMOL/L Anion Gap 9 5-14 MMOL/L Blood Urea Nitrogen 14 7-18 MG/DL Creatinine 0.87 0.60-1.30 MG/DL Estimat Glomerular Filtration Rate > 60 BUN/Creatinine Ratio 16 Glucose Level 104 70-105 MG/DL Calcium Level 9.2 8.5-10.1 MG/DL Corrected Calcium 9.2 8.5-10.1 MG/DL Magnesium Level 2.2 1.6-2.4 MG/DL Total Bilirubin 0.6 0.1-1.0 MG/DL Aspartate Amino Transf (AST/SGOT) 26 5-34 U/L Alanine Aminotransferase (ALT/SGPT) 24 0-55 U/L Alkaline Phosphatase 79 40-136 U/L Myoglobin 53.3 10.0-92.0 NG/ML Troponin I < 0.028 <0.028 NG/ML C-Reactive Protein High Sensitivity 0.52 H 0.00-0.50 MG/DL B-Type Natriuretic Peptide 27.3 <100.0 PG/ML Total Protein 7.6 6.4-8.2 GM/DL Albumin 4.0 3.2-4.5 GM/DL My Orders Orders - ASHLYN SORIANO MD Cbc With Automated Diff (09/17/20 10:58) Magnesium (09/17/20 10:58) Chest 1 View, Ap/Pa Only (09/17/20 10:58) Ekg Tracing (09/17/20 10:58) Comprehensive Metabolic Panel (09/17/20 10:58) Myoglobin Serum (09/17/20 10:58) Protime With Inr (09/17/20 10:58) Partial Thromboplastin Time (09/17/20 10:58) O2 (09/17/20 10:58) Monitor-Rhythm Ecg Trace Only (09/17/20 10:58) Lipid Panel (09/18/20 06:00) Ed Iv/Invasive Line Start (09/17/20 10:58) BNP (09/17/20 10:58) Troponin I (09/17/20 10:58) Nitroglycerin 0.4 Mg Btl 25's (Nitrostat (09/17/20 11:00) Aspirin Chewable Tablet (Baby Aspirin Ch (09/17/20 11:00) Hs C Reactive Protein (09/17/20 11:19) Medications Given in ED Current Medications Medications Dose Ordered Sig/Michele Route Start Time Stop Time Status Last Admin Dose Admin Aspirin 324 mg ONCE ONCE PO 09/17/20 11:00 09/17/20 11:01 DC 09/17/20 11:07 324 MG Nitroglycerin 0.4 mg UD PRN SL 09/17/20 11:00 09/17/20 11:08 0.4 MG Vital Signs/I&O 09/17/20 10:50 Temp 36.2 Pulse 75 Resp 16 B/P (MAP) 200/95 (130) Pulse Ox 96 O2 Delivery Room Air Blood Pressure Mean: 130 Progress Progress Note : Progress Note Patient's pain improved from a 3/10 down to 1/10 with nitroglycerin. Hypertension also corrected. Given patient's history of significant coronary artery disease and the stress test findings 3 years ago, admission for further evaluation, trending troponins, and development of further evaluation plan with a felt dyeing machine tender would be appropriate. Patient is agreeable to this. We discussed CODE STATUS. He wishes to have a full CODE STATUS but does not want to have prolonged life support measures. His family is aware of this. He also requested shielding of the thyroid during imaging studies as he only has 1 parathyroid gland remaining and he wishes to protect it as much as possible. Initial ECG Impression Date: Sep 17, 2020 Initial ECG Impression Time: 10:57 Initial ECG Rate: 74 Initial ECG Rhythm: Normal Sinus Initial ECG Intervals: Normal Initial ECG Impression: Normal Comment Normal sinus rhythm with no ST elevation or depression. No abnormal intervals or axis deviation. Diagnostic Imaging Diagonstic Imaging: Xray Plain Films/CT/US/NM/MRI: chest Comments Chest x-ray viewed by me and report reviewed. See report below: NAME: JARED LLANOS [facility] REC#: [id number] PT STATUS: REG ER : 1955 PHYSICIAN: ASHLYN SORIANO MD ADMIT DATE: 09/17/20/ER Draft Date of Exam:09/17/20 CHEST 1 VIEW, AP/PA ONLY Indication: Chest pain. Comparison: 06/29/2013 Findings: Cardiomegaly is present. Hazy opacities in left hemithorax resulting in obscuration of left heart border. No pneumothorax. Impression: 1. Left-sided opacities result in obscuration left heart border and could be due to an effusion or pulmonary consolidation. Advise followup PA and lateral chest radiographs in 4 weeks after appropriate medical management to ensure resolution. Dictated on workstation # [id number] Dict: 09/17/20 1133 Trans: 09/17/20 1139 [id number] Interpreted by: VLAD VERA MD Departure Communication (Admissions) Time/Spoke to Admitting Phy: 12:55 Dr. Drummond Time/Spoke to Consulting Phy: 12:30 Dr. Inman Impression Primary Impression: Chest pain Qualified Codes: R07.9 - Chest pain, unspecified Additional Impression: Coronary artery disease Qualified Codes: I25.10 - Atherosclerotic heart disease of [place] coronary artery without angina pectoris Disposition: ADMITTED INPATIENT Condition: Improved Admissions Decision to Admit Reason: Admit from ER (General) Decision to Admit/Date: Sep 17, 2020 Time/Decision to Admit Time: 12:25 Departure-Patient Inst. Referrals: JILLIAN JAMES MD (PCP/Family) Primary Care Physician Copy Copies To 1: JILLIAN JAMES MD Copies To 2: FORTUNATO BOUCHER MD, JOSHUA T MD Sep 17, 2020 11:25
[2020-09-17 11:30] LABS: INR 0.9 (0.8-1.4); PROTHROMBIN TIME PATIENT 12.8 SEC (12.2-14.7)
[2020-09-17 11:31] LABS: CHLORIDE 104 MMOL/L (98-107); POTASSIUM 4.4 MMOL/L (3.6-5.0); SODIUM 139 MMOL/L (135-145)
[2020-09-17 11:32] LABS: CALCIUM 9.2 MG/DL (8.5-10.1)
[2020-09-17 11:33] LABS: GLUCOSE 104 MG/DL (70-105); TOTAL PROTEIN 7.6 GM/DL (6.4-8.2)
[2020-09-17 11:34] LABS: CARBON DIOXIDE 26 MMOL/L (21-32)
[2020-09-17 11:35] LABS: BILIRUBIN,TOTAL 0.6 MG/DL (0.1-1.0)
[2020-09-17 11:36] LABS: ALKALINE PHOSPHATASE 79 U/L (40-136)
[2020-09-17 11:37] LABS: CREATININE SERUM 0.87 MG/DL (0.60-1.30); GFR ESTIMATED > 60
[2020-09-17 11:38] LABS: BUN/CREATININE RATIO 16
[2020-09-17 11:39] LABS: ALANINE AMINOTRANSFERASE 24 U/L (0-55); MAGNESIUM 2.2 MG/DL (1.6-2.4)
--- NOTE | 2020-09-17 11:40 | Diagnostic Imaging Report ---
CHEST 1 VIEW, AP/PA ONLY Indication: Chest pain. Comparison: 06/29/2013 Findings: Cardiomegaly is present. Hazy opacities in left hemithorax resulting in obscuration of left heart border. No pneumothorax. Impression: 1. Left-sided opacities result in obscuration left heart border and could be due to an effusion or pulmonary consolidation. Advise followup PA and lateral chest radiographs in 4 weeks after appropriate medical management to ensure resolution. Dictated by: Dictated on workstation # [id number]
[2020-09-17] MEDS ORDERED: ROSU5TAB13 PO (15:06)
[2020-09-17] MEDS ORDERED: ASPI-1238 PO (15:06)
[2020-09-17] MEDS ORDERED: MULT-1136 PO (15:06)
[2020-09-17] MEDS ORDERED: SAW/1TAB2 PO (15:06)
[2020-09-17] MEDS ORDERED: OMEG-109 PO (15:06)
--- NOTE | 2020-09-17 15:41 | History & Physical-Hospitalist ---
History of Present Illness HPI/Chief Complaint Pt is a 65yoCM with a PMH of CAD s/p CABG who presented to the ER due to chest pain. He states that it started a few days ago and he has both tenderness to the right upper chest and deep central chest pain. He did do some heavier exertion yesterday at work and has been feeling very tired. He denies any cough or fever, dyspnea on exertion, diaphoresis, or vomiting. He was very hypertensive on arrival and was given a nitro tab which resolved his chest pain. He had a stress test in 2018 which was abnormal with reversible ischemia though it was deemed clinically insignificant. Source: patient Date Seen 09/17/20 Time Seen by a Provider: 15:27 Attending Physician Gagandeep Drummond MD PCP Sonny Merida MD Referring Physician Date of Admission Sep 17, 2020 at 12:58 Home Medications & Allergies Home Medications Reviewed patient Home Medication Reconciliation performed by pharmacy medication reconciliations motorcycle service technician and/or nursing. Patients Allergies have been reviewed. Allergies Allergies Coded Allergies Sulfa (Sulfonamide Antibiotics) (Verified Allergy, Unknown, 03/25/08) Past Dyctrhf-Ggahah-Wycjss Hx Patient Social History Marrital Status: Employed/Student: employed Tobacco Use?: No Smoking Status: Never a Smoker Use of E-Cig and/or Vaping dev: No Substance use?: No Alcohol Use?: No Pt feels they are or have been: No Immunizations Up To Date Tetanus Booster (TDap): Unknown Seasonal Allergies Seasonal Allergies: No Current Status Advance Directives: Yes Advance Directive Location: Family to bring in copy Communicates: Verbally Primary Language: Guamanian Preferred Spoken Language: Guamanian Is interpretation needed?: No Past Medical History Surgeries: CABG, Coronary Stent, Gallbladder Coronary Artery Disease, High Cholesterol, Hypertension Sexually Transmitted Disease: No HIV/AIDS: No Kidney Stones Abdominal Hernia, Gall Bladder Disease Anxiety Blood Disorders: No Adverse Reaction/Blood Tranf: No Family Medical History Reviewed Nursing Family Hx No Pertinent Family Hx Review of Systems Constitutional: No chills, No fever EENTM: no symptoms reported Respiratory: No cough, No dyspnea on exertion, No short of breath Cardiovascular: chest pain; No edema; Hx of Intervention; No syncope Gastrointestinal: No abdominal pain, No constipation, No nausea, No vomiting Genitourinary: No dysuria, No frequency Musculoskeletal: see HPI Skin: no symptoms reported Psychiatric/Neurological: No Symptoms Reported Physical Exam Physical Exam Vital Signs Vital Signs - First Documented 09/17/20 10:50 Temp 36.2 Pulse 75 Resp 16 B/P (MAP) 200/95 (130) Pulse Ox 96 O2 Delivery Room Air Capillary Refill : Less Than 3 Seconds Height, Weight, BMI Height: 5'6.00" Weight: 204lbs. 0.6oz. [id number]; 36.47 BMI Method:Stated General Appearance: No Apparent Distress, WD/WN, Obese HEENT: PERRL/EOMI, Moist Mucous Membranes; No Scleral Icterus (L), No Scleral Icterus (R) Neck: Supple Respiratory: Lungs Clear, No Accessory Muscle Use, No Respiratory Distress, Other (chest tenderness to right pectoralis major) Cardiovascular: Regular Rate, Rhythm, No JVD, No Murmur Gastrointestinal: Normal Bowel Sounds, Non Tender, Soft Extremity: No Calf Tenderness, No Pedal Edema Neurologic/Psychiatric: Alert, Oriented x3, Normal Mood/Affect Results Results/Procedures Labs Laboratory Tests 09/17/20 11:05 Patient resulted labs reviewed. Imaging: Reviewed Imaging Report Imaging [facility], [place] NAME: JARED LLANOS [facility] REC#: [id number] PT STATUS: ADM Lee : 1955 PHYSICIAN: ASHLYN SORIANO MD ADMIT DATE: 09/17/20/[facility] Signed Date of Exam:09/17/20 CHEST 1 VIEW, AP/PA ONLY CHEST 1 VIEW, AP/PA ONLY Indication: Chest pain. Comparison: 06/29/2013 Findings: Cardiomegaly is present. Hazy opacities in left hemithorax resulting in obscuration of left heart border. No pneumothorax. Impression: 1. Left-sided opacities result in obscuration left heart border and could be due to an effusion or pulmonary consolidation. Advise followup PA and lateral chest radiographs in 4 weeks after appropriate medical management to ensure resolution. Dictated by: Dictated on workstation # [id number] Dict: 09/17/20 1133 Trans: 09/17/20 1455 [id number] Interpreted by: VLAD VERA MD Electronically signed by: VLAD VERA MD 09/17/20 1455 Assessment/Plan Admission Diagnosis Chest pain Admission Status: Observation Assessment and Plan Chest pain CAD s/p CABG HTN HLD Admit for observation troponin negative x1, trend Cardiology consulted, appreciate recs Monitor on telemetry BP since arrival Continue home meds Chest wall tenderness Likely MSK Tylenol added DVT ppx: GAGANDEEP Higgins MD Sep 17, 2020 15:41
[2020-09-17] MEDS ORDERED: ANTACID SUSP 30 ML UDC (MYLANTA) PO PRN (16:00)
[2020-09-17] MEDS ORDERED: MILK OF MAGNESIA 400 MG/5 ML 30 ML UDC PO PRN (16:00)
[2020-09-17] MEDS ORDERED: MELATONIN 3 MG TABLET PO PRN (16:00)
[2020-09-17] MEDS ORDERED: ACETAMINOPHEN 325 MG TABLET PO PRN (16:00)
[2020-09-17] MEDS ORDERED: ONDANSETRON 4 MG/2 ML (SDV) Z0FRAN IV PRN (16:00)
--- NOTE | 2020-09-17 16:00 | Consultation-Cardiology ---
HPI-Cardiology Cardiology Consultation: Date of Consultation 09/17/20 Date of Admission Attending Physician Marycruz Drummond MD Admitting Physician Sonny Merida MD Consulting Physician ABIGAIL ZURITA JR, MD HPI: Time Seen by a Provider: 15:55 Chief Complaint: Reason for consultation: Chest pain. I had the pleasure of seeing Rian in the cardiac stepdown unit today. He has a history of coronary artery disease with previous coronary stents followed by coronary artery bypass surgery with 2 grafts, hypertension, hyperlipidemia, and obesity. He was in his usual state of health until this past weekend when he woke up on Tuesday and had substernal chest tightness. This radiated to his back. He denies associated complaints. He did not think much of this. This symptom waxed and waned over the next few days. Nothing seemed to bring this on and nothing seemed to make this better or worse. He did not seek medical attention. Then this morning when he woke up, he was very lightheaded and dizzy. This made him concerned so he came to the emergency room for further evaluation. He was still having some intermittent substernal chest tightness. He was given 1 sublingual nitroglycerin and his chest discomfort resolved. This substernal tightness has not recurred. He does also have some left-sided chest discomfort. This feels more like a sharp pain. He can put his finger on this but and this is reproducible. He does not recall doing any heavy lifting or any other activities that may have caused muscle strain in the left upper chest. He denies dyspnea, paroxysmal nocturnal dyspnea, thigh apnea, palpitations, lightheadedness, syncope, or lower extremity edema. He does not smoke cigarettes. 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 Review of Systems-Cardiology Review of Systems Other comments Review of 10 organ systems is as per the history of present illness, otherwise negative. UDY-Sayoxj-Vocrbg Hx Patient Social History Marrital Status: Employed/Student: employed Smoking Status: Never a Smoker 2nd Hand Smoke Exposure: No Have you traveled recently?: No Alcohol Use?: No Pt feels they are or have been: No Immunizations Up To Date Tetanus Booster (TDap): Unknown Past Medical History PMH As described under Assessment. Allergies and Home Medications Allergies Coded Allergies: Sulfa (Sulfonamide Antibiotics) (Verified Allergy, Unknown, 03/25/08) Home Medications Aspirin 81 Mg Tablet.dr, 81 MG PO DAILY, (Reported) Last Action: Continued Multivitamin 1 Each Tablet, 1 EACH PO DAILY, (Reported) Last Action: Held [place]-3 Fatty Acids/Fish Oil 1 Each Capsule, 1 EACH PO DAILY, (Reported) Last Action: Converted Rosuvastatin Calcium 5 Mg Tablet, 5 MG PO DAILY, (Reported) Last Action: Continued Saw/Vit E/Sod Maureen/Lyc/Beta/Pyg 1 Each Tablet, 1 EACH PO DAILY, (Reported) Last Action: Held Patient Home Medication List Home Medication List Reviewed: Yes Exam Vital Signs Vital Signs Date Time Temp Pulse Resp B/P (MAP) Pulse Ox O2 Delivery O2 Flow Rate FiO2 09/17/20 15:01 68 137/71 (93) 94 09/17/20 13:52 36.0 20 Room Air Physical Exam General: Alert. No acute distress. Well nourished and appears stated age. He is obese. Eye: Extraocular movements are intact. Conjunctivae are clear. There are no xanthelasma. HENT: Normocephalic. Atraumatic. Carotid pulsations 2/2 without bruits. Neck: Jugular venous pressure does not appear elevated. No thyromegaly apprecia kristy. Respiratory: Lungs are clear to auscultation. Respirations are non-labored. Breath sounds are equal. Symmetrical chest wall expansion. Cardiovascular: Normal rate. Regular rhythm. No murmur. No gallop. Point of maximal impulse is not appear displaced. Good pulses equal in all extremities. No edema. Gastrointestinal: Soft. Normal bowel sounds. Skin: Skin turgor is normal. There is no pallor. Musculoskeletal: No kyphosis or scoliosis appreciated. Neurologic: Alert and oriented to person, place, time. Cranial nerves 3-12 appear grossly intact. The patient has good motor tone strength in the upper and lower extremities bilaterally. Psychiatric: Cooperative. Appropriate mood & affect. Labs Laboratory Tests 09/17/20 11:05: White Blood Count 5.5, Red Blood Count 4.95, Hemoglobin 14.6, Hematocrit 44, Mean Corpuscular Volume 89, Mean Corpuscular Hemoglobin 30, Mean Corpuscular Hemoglobin Concent 33, Red Cell Distribution Width 13.2, Platelet Count 197, Mean Platelet Volume 9.7, Immature Granulocyte % (Auto) 0, Neutrophils (%) (Auto) 66, Lymphocytes (%) (Auto) 24, Monocytes (%) (Auto) 8, Eosinophils (%) (Auto) 2, Basophils (%) (Auto) 0, Neutrophils # (Auto) 3.6, Lymphocytes # (Auto) 1.3, Monocytes # (Auto) 0.4, Eosinophils # (Auto) 0.1, Basophils # (Auto) 0.0, Immature Granulocyte # (Auto) 0.0, Prothrombin Time 12.8, INR Comment 0.9, Activated Partial Thromboplast Time 30, Sodium Level 139, Potassium Level 4.4, Chloride Level 104, Carbon Dioxide Level 26, Anion Gap 9, Blood Urea Nitrogen 14, Creatinine 0.87, Estimat Glomerular Filtration Rate > 60, BUN/Creatinine Ratio 16, Glucose Level 104, Calcium Level 9.2, Corrected Calcium 9.2, Magnesium Level 2.2, Total Bilirubin 0.6, Aspartate Amino Transf (AST/SGOT) 26, Alanine Aminotransferase (ALT/SGPT) 24, Alkaline Phosphatase 79, Myoglobin 53.3, Troponin I < 0.028, C-Reactive Protein High Sensitivity 0.52H, B-Type Natriuretic Peptide 27.3, Total Protein 7.6, Albumin 4.0 ECG Impression ECG Comment Sinus rhythm with probable old inferior infarct. No acute changes. Diagnosis/Problems Diagnosis/Problems (1) Coronary artery disease with unstable angina pectoris Assessment & Plan: His chest pain resolved with 1 nitroglycerin. His first troponin level was negative. There are no ischemic changes on his electrocardiogram. He did have a stress test 3 years ago that showed an inferolateral ischemic defect. We will trend the troponins. If he has further chest pain we we may want to consider starting him on low molecular weight heparin. He should continue on aspirin and statin medication. Depending on how he does overnight and the results of the troponin levels, we will decide in the morning whether proceed to with a cardiac catheterization or stress test. I will keep him n.p.o. after midnight. (2) Chest pain Status: Acute Assessment & Plan: He is also having a second chest pain in the left side of his chest. This is reproducible. I suspect this is musculoskeletal chest pain. (3) Essential hypertension Assessment & Plan: He has a history of hypertension but did not appear to be taking antihypertensive medication at home. His blood pressures have been intermittently elevated here in the hospital. If this persists, we may need to add antihypertensive therapy. If that is the case, I would suggest starting with beta-long given his history of coronary artery disease. (4) Mixed hyperlipidemia Assessment & Plan: Goal LDL less than 100 mg/dL. Continue statin medication. The hospital provider has ordered a lipid panel for the morning. (5) Obesity Assessment & Plan: This will likely increase his risk of possible future cardiac and noncardiac events. He needs to work on weight loss. Problem Qualifiers (1) Chest pain: Chest pain type: unspecified Qualified Codes: R07.9 - Chest pain, unspecified ABIGAIL ZURITA JR, MD Sep 17, 2020 16:00
[2020-09-17] MEDS: ENOXAPARIN 40 MG/0.4 ML (LOVENOX) SYR SQ SCH (17:37)
[2020-09-18] VITALS (15 sets, daily range): BP systolic 110–163; BP diastolic 64–105
[2020-09-18 03:47] LABS: TRIGLYCERIDES 178 MG/DL (<150); VLDL CHOLESTEROL 36 MG/DL (5-40)
[2020-09-18 03:52] LABS: CHOLESTEROL 165 MG/DL (< 200)
[2020-09-18 03:53] LABS: HDL CHOLESTEROL 36 MG/DL (40-60)
[2020-09-18] MEDS ORDERED: CATHETER FLUSH 10 ML SYR IV PRN (07:30)
[2020-09-18] MEDS ORDERED: REGADENOSON 0.4 MG/5 ML SYR (LEXISCAN) IV ONE ×2 (08:04→08:15)
--- NOTE | 2020-09-18 08:10 | Cardiology Progress Note ---
Subjective Date Seen by Provider: Sep 18, 2020 Time Seen by Provider: 07:55 Subjective/Events-last exam Patient in [facility] for stress test. Reports some chest tightness this m orning. Continues to complain of dizziness and lightheadedness. Review of Systems General: No Chills, No Night Sweats, No Fatigue, No Malaise, No Appetite, No Other HEENT: No Head Aches, No Visual Changes, No Eye Pain, No Ear Pain, No Dysphasia, No Sinus Congestion, No Post Nasal Drip, No Sore Throat, No Other Pulmonary: No Dyspnea, No Cough, No Pleuritic Chest Pain, No Other Cardiovascular: No: Chest Pain, Palpitations, Orthopnea, Paroxysmal Noc. Dyspnea, Edema, Lt Headedness, Other Objective-Cardiology Exam Last Set of Vital Signs Vital Signs 09/18/20 12:00 Temp 35.8 Pulse 75 Resp 18 B/P (MAP) 162/105 (124) Pulse Ox 96 O2 Delivery Room Air I&O Intake and Output 09/18/20 00:00 Intake Total 320 ml Output Total 2 ml Balance 318 ml Intake Oral 320 ml Output Urine Total 2 ml Daily Weight Change No General: Alert, Oriented X3, Cooperative HEENT: Atraumatic, PERRLA Lungs: Clear to Auscultation, Normal Air Movement Heart: Regular Rate, Normal S1, Normal S2, No Murmurs Abdomen: Normal Bowel Sounds, Soft Skin: No Rashes, No Significant Lesion Neuro: Normal Speech, Cranial Nerves 3-12 NL Psych/Mental Status: Mental Status NL, Mood NL Results Lab A/P-Cardiology Admission Diagnosis Chest pain CAD HTN HLP Assessment/Plan Chest pain, non specific etiology, EKG showing no acute ST changes, initial troponin negative, repeat troponin pending at this time. Will proceed with stress test this morning. Coronary artery disease, history of multiple interventions where he had stents in the LAD, circumflex and right coronary artery done in 2010. Had another cardiac catheterization in June 2013 showing 80 percent stenosis in the ostium of the LAD confirmed with FFR and 95 percent stenosis in the proximal to mid right coronary artery. Patient underwent CABG 2 at [facility] June 2013 using ARCE to the LAD and reverse saphenous vein graft to the distal right coronary artery with excellent results. Most recent stress test October 2017 revealed no ischemia or infarct. Continue to monitor. Congestive heart failure, most recent echocardiogram done in July 2014 showed normal LV function, ejection fraction 60 percent. Continue to monitor. Patient has been unable to tolerate beta blockers or Edil inhibitors/ARB's in the past secondary to history of hypotension and syncope. History of Hypertension, episodes of severe hypotension, reporting improvement after discontinuation of beta blockers and lisinopril. I will continue monitoring Hyperlipidemia, maintained on statin as outpatient. Hyperparathyroidism, underwent surgical parathyroidectomy on September 22, 2016, and again in March 2017. Being followed at . Obesity, BMI is 37, patient has gained weight, we discussed weight loss and exercise and monitoring his diet. Status post syncope. Borderline hypotensive. Improved after discontinuation of beta blockers and lisinopril. We will continue to monitor. Nonobstructive carotid artery stenosis per carotid duplex done Apr 2019 Strong family history of heart disease. Patient was seen and evaluated with Sandy, examination performed, management plan was discussed, agree with the current scribed note, I made few changes to the note using Italic font Patient was scheduled for a stress test, it was abnormal Had a long discussion with the patient and his family and recommended cardiac catheterization, I asked Dr. Inman to do the cardiac catheterization for me. Monitor blood pressure and lipids SANDY GODFREY Sep 18, 2020 8:10 am FORTUNATO BOUCHER MD Sep 18, 2020 12:28 pm
[2020-09-18] MEDS ORDERED: NON-FORMULARY MEDICATION 1 EA EA (Omega-3 Fatty Acids/Fish Oil (Fish Oil 1,200 mg Softgel) PO SCH (09:00)
[2020-09-18] MEDS ORDERED: ASPIRIN E.C. 81 MG (ECOTRIN) TAB PO SCH (09:00)
[2020-09-18] MEDS ORDERED: ROSUVASTATIN 5 MG (CRESTOR) TABLET PO SCH (09:00)
[2020-09-18] MEDS ORDERED: OMEGA 3 (FISH OIL) 1000 MG CAP PO SCH (09:00)
[2020-09-18] MEDS ORDERED: NS IV 1000 ML 1,000 ML IV SCH ×2 (10:30)
--- NOTE | 2020-09-18 11:21 | Pre-Op Note & Conscious Sedat ---
Pre-Operative Progress Note H&P Reviewed The H&P was reviewed, patient examined and changes noted. Overnight he had ongoing intermittent chest pain and this morning his troponin level became elevated. He underwent a nuclear stress test that showed a small, distal inferolateral and apical reversible defect. In light of these findings, we plan to proceed with cardiac catheterization. The benefits and risks of the procedure have been explained to the patient and his family and all are in agreement to proceed. Date H&P Reviewed: Sep 18, 2020 Time H&P Reviewed: 11:20 Pre-Op Diagnosis: Coronary artery disease with unstable angina. Conscious Sedation Pre-Proced ASA Score 3 For ASA 3 and 4: Consider anesthesia and medical clearance. Also, for patients with a history of failed moderate sedation consider anesthesia. Airway Lungs Heart ASA score ASA 1: a normal healthy patient ASA 2: a patient with a mild systemic disease (mid diabetes, controlled hypertension, obesity ASA 3: a patient with a severe systemic disease that limits activity (angina, COPD, prior Myocardial infarction) ASA 4: a patient with an incapacitating disease that is a constant threat to life (CHF, renal failure) ASA 5: a moribund patient not expected to survive 24 hrs. (ruptured aneurysm) ASA 6: a declared brain- patient whose organs are being harvested. For emergent operations, add the letter E after the classification Mallampati Classification Grade 2 Sedation Plan Analgesia, Amnesia, Plan communicated to team members, Discussed options with patient/fam, Discussed risks with patient/fam The patient is an appropriate candidate to undergo the planned procedure, sedation, and anesthesia. The patient immediately re-assessed prior to indication. ABIGAIL ZURITA JR, MD Sep 18, 2020 11:21
[2020-09-18] MEDS ORDERED: VERAPAMIL 5 MG/2 ML (CALAN) VIAL IV ONE (11:53)
[2020-09-18] MEDS ORDERED: fentaNYL INJ 100 MCG/2 ML AMP ONE (11:53)
[2020-09-18] MEDS ORDERED: MIDAZOLAM 5 MG/5 ML (VERSED) VIAL ONE (11:55)
[2020-09-18] MEDS ORDERED: NITRO DRIP 25000 MCG/D5W 250 ML IV ONE (11:55)
[2020-09-18] MEDS ORDERED: ONDANSETRON 4 MG/2 ML (SDV) Z0FRAN ONE (12:11)
[2020-09-18] MEDS ORDERED: HEParin 1000 UNIT/ML (10ML VIAL) FOR BOLUS ONE (12:26)
--- NOTE | 2020-09-18 12:32 | Cardiology Stress Test Report ---
Stress Test Report Date of Procedure/Referring: Date of Procedure: Sep 17, 2020 PCP Marycruz Drummond MD Admitting Physician Sonny Merida MD Indications: Chest pain Baseline Heart Rate: 76 Baseline Blood Pressure: Blood Pressure Systolic: 162 Blood Pressure Diastolic: 105 Baseline Vitals Vital Signs Date Time Temp Pulse Resp B/P (MAP) Pulse Ox O2 Delivery O2 Flow Rate FiO2 09/17/20 10:50 36.2 75 16 200/95 (130) 96 Room Air Baseline EKG: Baseline EKG: NSR Summary After explaining the procedure to the patient, he signed a consent and then brought to the stress nuclear laboratory. Patient received 0.4 mg Lexiscan for stress test, ECG, heart rate and blood pressure were monitored continuously. Resting and stress dose of radio tracer were injected, imaging was acquired and reviewed in short axis, horizontal long axis and vertical long axis views. TID: 0.95 SSS: 7 SDS: 4 EF: 50 1. Patient tolerated Lexiscan well 2. Reversible ischemia involving the mid to apical inferior wall and inferolateral wall, could be secondary to diaphragmatic attenuation 3. Normal left ventricular size, EF 50% FORTUNATO BOUCHER MD Sep 18, 2020 12:32
[2020-09-18] MEDS ORDERED: CLOPIDOGREL 300 MG (PLAVIX) TABLET PO ONE (13:03)
[2020-09-18] MEDS ORDERED: PATIENT MAY USE OWN MEDS, ALL PO SCH (13:30)
--- NOTE | 2020-09-18 14:55 | Coronary Angiography & PCI ---
Coronary Angiography & PCI DATE OF PROCEDURE: 09/18/20 INDICATION: Coronary artery disease with unstable angina and abnormal nuclear stress test. HISTORY: The patient is a 65-year-old male with known coronary artery disease who underwent previous coronary stent placement to the left anterior descending, left circumflex, and the proximal and distal right coronary arteries many years ago. In 2013 he developed angina and underwent a follow-up cardiac catheterization that showed severe disease distal to the stents in the proximal left anterior descending coronary artery and right coronary arteries. He subsequently underwent coronary bypass surgery in 2013 with a left internal mammary artery graft to left anterior descending coronary artery and a saphenous vein graft to the right posterolateral branch. He presented to the hospital yesterday with symptoms concerning for unstable angina. He is initial 2 troponin levels were undetectable but overnight he had ongoing chest pain. This morning he underwent a nuclear stress test that showed distal inferior, inferolateral and apical defect with a normal ejection fraction. A troponin level from this morning was borderline elevated. Therefore, he is now referred for further evaluation with a cardiac catheterization. PROCEDURES PERFORMED: 1. Left heart catheterization with hemodynamic measurements. 2. Diagnostic [place] coronary angiography. 3. Diagnostic bypass graft angiography. 3. Drug-eluting stent placement to the proximal right coronary artery. PROCEDURE DESCRIPTION: After informed consent and in the fasting state, left heart catheterization was performed through the left radial artery utilizing a 6 [place] sheath by percutaneous approach.A 6 [place] JR4 catheter was utilized to interrogate the right coronary artery, right coronary graft and left internal mammary artery graft. A 5 [place] JL 4 catheter was utilized to interrogate the left main coronary artery. A 6 [place] JR4 guide catheter was utilized for the percutaneous coronary intervention. RESULTS HEMODYNAMICS: The aortic pressure was 122/67 mmHg. The left ventricular pressure was 128/0 mmHg with a left ventricular end-diastolic pressure of 5 mmHg. There was no significant pressure gradient upon pullback across the aortic valve. Nuclear [place] CORONARY ANGIOGRAPHY: Left main coronary artery: There was a 60% stenosis distally with HAWK-3 flow. Left anterior descending coronary artery: There was a 70% stenosis in the ostium just proximal to the previously placed stent. The vessel was totally occluded in the midsegment with HAWK 0 flow beyond the occlusion. There were multiple small diagonal branches which contained moderate diffuse disease. These branches would be too small for revascularization. Left circumflex coronary artery: Free of significant disease. There were 3 small obtuse marginal branches that contained mild diffuse disease. These would probably be too small for intervention. There was a very large fourth obtuse marginal branch which contained a stent in its proximal portion which was widely patent. This branch extends nearly out to the apex. Right coronary artery: There was a 90% stenosis proximally just proximal to a previously placed stent. There was HAWK-3 flow. The stent in the proximal segment was widely patent. There were diffuse irregularities in the mid to distal segment. There was a stent in the distal vessel between the takeoff of the posterior descending and posterolateral branches and the stent was totally occluded. No competitive flow could be seen coming from the bypass graft. BYPASS GRAFT ANGIOGRAPHY: Left internal mammary artery graft to left anterior descending coronary artery: Widely patent with good distal runoff. The distal left anterior descending coronary artery was a somewhat small vessel. Saphenous vein graft to right posterolateral branch: This graft touches down just distal to the occluded stent in the distal right coronary artery that is between the posterior descending and right posterolateral branch. The graft is widely patent with good distal runoff. The distal vessel was small. PERCUTANEOUS CORONARY INTERVENTION OF PROXIMAL RIGHT CORONARY ARTERY: Harrison orozco coronary intervention was carried out on the proximal right coronary artery through a 6 [place] JR4 guide catheter. The lesion was successfully crossed with a Whisper medium support guidewire. I subsequently performed coronary angioplasty with a 2.5 x 12 mm Trek balloon at a pressure of 10 venkat for 2 inflations. I subsequently deployed a 3 x 18 mm drug-eluting Xience stent at a pressure of 16 venkat. Following stent placement, there was 0% residual stenosis with HAWK-3 flow. IMPRESSION: 1. Normal left heart pressures. 2. Severe [place] two-vessel coronary artery disease involving the left anterior descending and right coronary arteries as outlined above. 3. Patent stent in the large fourth obtuse marginal branch. 4. Patent left internal mammary artery graft to left anterior descending coronary artery. 5. Patent saphenous vein graft to the right posterolateral branch. 6. Status post drug-eluting stent placement to the proximal right coronary artery with a 3 x 18 mm Xience stent with 0% residual stenosis and HAWK-3 flow. 7. The patient is known to have normal left ventricular systolic function with a calculated ejection fraction of 50% by nuclear stress test obtained earlier today. ABIGAIL ZURITA JR, MD Sep 18, 2020 14:55
--- NOTE | 2020-09-18 15:53 | Progress Note - Hospitalist ---
Subjective HPI/CC On Admission Date Seen by Provider: Sep 18, 2020 Time Seen by Provider: 15:50 Pt is a 65yoCM with a PMH of CAD s/p CABG who presented to the ER due to chest pain. He states that it started a few days ago and he has both tenderness to the right upper chest and deep central chest pain. He did do some heavier exertion yesterday at work and has been feeling very tired. He denies any cough or fever, dyspnea on exertion, diaphoresis, or vomiting. He was very hypertensive on arrival and was given a nitro tab which resolved his chest pain. He had a stress test in 2018 which was abnormal with reversible ischemia though it was deemed clinically insignificant. Subjective/Events-last exam Pt reports feeling better today. Went to stress and it was abnormal so went to cath and had stent placed. radial access so sitting up in bed and feeling well. Objective Exam Vital Signs Vital Signs Date Time Temp Pulse Resp B/P (MAP) Pulse Ox O2 Delivery O2 Flow Rate FiO2 09/18/20 15:00 36.0 72 18 149/89 (109) 92 Room Air Capillary Refill : Less Than 3 Seconds General Appearance: No Apparent Distress, WD/WN Respiratory: Lungs Clear, No Respiratory Distress Cardiovascular: Regular Rate, Rhythm, No Murmur Gastrointestinal: Normal Bowel Sounds, Soft Neurologic/Psychiatric: Alert, Oriented x3 Results/Procedures Lab Patient resulted labs reviewed. Imaging: Reviewed Imaging Report Assessment/Plan Assessment and Plan Assess & Plan/Chief Complaint Chest pain CAD s/p CABG HTN HLD Stress today was abnormal s/p cath with stent deployment Monitor overnight, hopeful DC in AM Cardiology consulted, appreciate recs Monitor on telemetry Continue home meds Chest wall tenderness Likely MSK Tylenol prn DVT ppx: Lovenox GAGANDEEP PLASENCIA MD Sep 18, 2020 15:53
[2020-09-18] MEDS ORDERED: CLOP75TA28 PO (16:05)
[2020-09-18] MEDS: ENOXAPARIN 40 MG/0.4 ML (LOVENOX) SYR SQ SCH (16:18)
--- NOTE | 2020-09-18 17:48 | Discharge Inst-Simple/Standard ---
Discharge Inst-Standard Discharge Medications New, Converted or Re-Newed RX: Transmitted to Pharmacy Patient Instructions/Follow Up Plan of Care/Instructions/FU: Please continue to take your medications as written. It is important to take your aspirin and plavix every day to protect your stent. Please follow up with your primary care doctor and Dr Padron to follow up this hospital stay. Activity as Tolerated: Yes Discharge Diet: Cardiac Diet Return to The Hospital For: Chest pain, shortness of breath, weakness, confusion, if you feel you are getting worse. GAGANDEEP PLASENCIA MD Sep 18, 2020 17:48
[2020-09-19] MEDS ORDERED: CLOPIDOGREL 75 MG (PLAVIX) TABLET PO SCH (09:00)
--- NOTE | 2020-09-26 13:33 | Physician Query-Final Dx ---
Final Diagnosis Give Final Diagnosis Please give Final Diagnosis ANGELITO CORLEY Sep 26, 2020 13:33
== END 2020-09-18 18:53 | disposition home or self-care (01) ==
LOC: EDUNIT# 10:50 → ER 10:52 → UNDOADMOB 12:58 → CSD 12:58 → CATH 13:40 → CSD 13:40 → UNDODISOB 09-18 18:53 → CATH 09-18 18:53
PROVIDERS: ATTEND Family Medicine
DX: I25.110 Atherosclerotic heart disease of native coronary artery with unstable angina pectoris (principal); I10 Essential (primary) hypertension; E78.00 Pure hypercholesterolemia, unspecified; F41.9 Anxiety disorder, unspecified; R94.39 Abnormal result of other cardiovascular function study; Z79.82 Long term (current) use of aspirin; Z79.899 Other long term (current) drug therapy; Z95.5 Presence of coronary angioplasty implant and graft
CPT/HCPCS: 71045; 78452; 80053; 80061; 82947; 83735; 83874; 83880; 84484 ×2; 85025; 85610; 85730; 86141; 93005 ×2; 93017; 93041; 93459; 99284; A9502; C1725; C1769; C1874; C1887; C9600; G0378; 36415

== ENCOUNTER 2021-02-01 16:05 | Observation (INO) | payer MEDICARE, BC ==
[~2021-02-01] VITALS: Ht 170 cm; Wt 90.7 kg
[~2021-02-01 16:05] MED LIST changes: +CLOP75TA28 PO; +MULT-1136 PO; +OMEG-109 PO; +ROSU5TAB13 PO; +SAW/1TAB2 PO
[2021-02-01 16:29] LABS: BASOPHILS % (AUTO) 0 % (0-10); EOSINOPHILS # (AUTO) 0.1 10^3/uL (0.0-0.3); EOSINOPHILS % (AUTO) 1 % (0-10); HEMATOCRIT 42 % (40-54); HEMOGLOBIN 13.8 g/dL (13.3-17.7); LYMPHOCYTES # (AUTO) 1.3 10^3/uL (1.0-4.0); LYMPHOCYTES % (AUTO) 20 % (12-44); MEAN CORPUSCULAR HEMOGLOBIN 29 pg (25-34); MEAN CORPUSCULAR HGB CONC 33 g/dL (32-36); MEAN CORPUSCULAR VOLUME 88 fL (80-99); MEAN PLATELET VOLUME 10.4 fL (9.0-12.2); MONOCYTES # (AUTO) 0.4 10^3/uL (0.0-1.0); MONOCYTES % (AUTO) 6 % (0-12); NEUTROPHILS # (AUTO) 4.7 10^3/uL (1.8-7.8); NEUTROPHILS % (AUTO) 73 % (42-75); PLATELET COUNT 197 10^3/uL (130-400); WHITE BLOOD COUNT 6.5 10^3/uL (4.3-11.0)
[2021-02-01 16:41] LABS: ALBUMIN 3.4 GM/DL (3.2-4.5); POTASSIUM 4.5 MMOL/L (3.6-5.0)
[2021-02-01 16:42] LABS: CALCIUM 8.2 MG/DL (8.5-10.1)
[2021-02-01 16:44] LABS: TOTAL PROTEIN 6.8 GM/DL (6.4-8.2)
[2021-02-01 16:45] LABS: BILIRUBIN,TOTAL 0.2 MG/DL (0.1-1.0)
[2021-02-01 16:47] LABS: CREATININE SERUM 0.75 MG/DL (0.60-1.30)
--- NOTE | 2021-02-01 16:57 | Diagnostic Imaging Report ---
INDICATION: Chest pain. COMPARISON: Study of 09/17/2020. FINDINGS: There is progressive hazy opacity in the left hemithorax. There does appear to be some volume loss with ipsilateral leftward shift of the cardiomediastinum. Correlative chest CT recommended to exclude atelectasis from an endobronchial lesion. The right lung is clear. The right pleural space negative. There is no pneumothorax. Sternal wires midline. IMPRESSION: Volume loss and marked hazy opacity throughout the left hemithorax. Correlative chest CT recommended to exclude postobstructive disease. Dictated by: Dictated on workstation # [id number]
--- NOTE | 2021-02-01 17:08 | ED Chest Pain ---
General Chief Complaint: Chest Pain Stated Complaint: CP Nursing Triage Note: PT ARRIVES BY [facility] WITH C/O CP THAT STARTED LAST NIGHT AND GOT WORSE TODAY. PT FELT LIGHT HEADED TODAY ALSO. PT TOOK 2 NITRO AT HOME AND EMS GAVE HER 1 MORE NITRO AND ASA History of Present Illness Date Seen by Provider: Feb 01, 2021 Time Seen by Provider: 16:10 Initial Comments 65-year-old male brought by EMS for chest pain that is been present since last evening. Patient does report for approximately 2 to 3 days he is been having heartburn and he had taken Tums with no improvement. Last night he went to bed after having left-sided chest wall pain, he awoke and the pain was less however it became more significant while he was at [employer]. He also became diaphoretic and pale, his reports he started to faint, but fell onto the bed and she yelled at him, he was immediately responsive. He has had stents placed as well as open heart surgery in 2013. Stress test and cath September 2020 showed no further vessel occluded. 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 No nausea or vomiting. The patient did take nitro x2 prior to the ambulance arriving, and then EMS gave a third nitro, his pain went from an 8 to a 3. His now complaining of a mild headache. He was given aspirin by EMS, [address] elevation was noted on telemetry. No history of diabetes. He has not received COVID vaccinations. Timing/Duration: 2-3 days Severity/Quality: mild Location: substernal Radiation: no radiation Prior CP/Workup: cardiac cath, heart attack Modifying Factors: improves with nitroglycerin, improves with rest ASA po SEED CLEANER: Yes NTG SL SEED CLEANER: Yes Associated Symptoms: No abdominal pain, No back pain; diaphoresis; No dizziness, No fever/chills; headache, heartburn; No nausea/vomiting, No shortness of breath, No syncope Allergies and Home Medications Allergies Coded Allergies: Sulfa (Sulfonamide Antibiotics) (Verified Allergy, Unknown, 03/25/08) Patient Home Medication List Home Medication List Reviewed: Yes Aspirin (Aspirin EC) 81 Mg Tablet., 81 MG PO DAILY, (Reported) Entered as Reported by: VIOLETTE BACON on 09/17/20 150 Clopidogrel Bisulfate (Clopidogrel) 75 Mg Tablet, 75 MG PO DAILY Prescribed by: ABIGAIL ZURITA JR, MD on 09/18/20 1605 Multivitamin (Multivitamin) 1 Each Tablet, 1 EACH PO DAILY, (Reported) Entered as Reported by: VIOLETTE BACON on 09/17/20 1506 Holden-3 Fatty Acids/Fish Oil (Fish Oil 1,200 mg Softgel) 1 Each Capsule, 1 EACH PO DAILY, (Reported) Entered as Reported by: VIOLETTE BACON on 09/17/20 1506 Rosuvastatin Calcium (Rosuvastatin Calcium) 5 Mg Tablet, 5 MG PO DAILY, (Reported) Entered as Reported by: VIOLETTE BACON on 09/17/20 1506 Saw/Vit E/Sod Maureen/Lyc/Beta/Pyg (Prostate Health Caplet) 1 Each Tablet, 1 EACH PO DAILY, (Reported) Entered as Reported by: VIOLETTE BACON on 09/17/20 1506 Review of Systems Review of Systems Constitutional: no symptoms reported, see HPI Cardiovascular: See HPI, Chest Pain All Other Systems Reviewed Negative Unless Noted: Yes Past Yhbukts-Sgffrt-Kcquin Hx Patient Social History Tobacco Use?: No Substance use?: No Alcohol Use?: No Immunizations Up To Date Tetanus Booster (TDap): Unknown Influenza Vaccine Up-to-Date: No; Not Current Seasonal Allergies Seasonal Allergies: No Past Medical History Surgery/Hospitalization HX: CABG STENTS HERNIA REPAIR GALLBLADDER KIDNEY STONES PARATHYROID REMOVAL Surgeries: Yes (CYST REMOVED FROM URETHRA, UMBILICAL HERNIA REPAIR X2, parathyroidectomy) CABG, Coronary Stent, Gallbladder Respiratory: No Cardiac: Yes (STENTS AND CABG) Coronary Artery Disease, High Cholesterol, Hypertension Neurological: Yes Reproductive Disorders: No Sexually Transmitted Disease: No HIV/AIDS: No Genitourinary: Yes Kidney Stones Gastrointestinal: Yes Abdominal Hernia, Gall Bladder Disease Musculoskeletal: No Endocrine: No HEENT: No Cancer: No Psychosocial: Yes Anxiety Integumentary: No Blood Disorders: No Adverse Reaction/Blood Tranf: No Family Medical History Reviewed Nursing Family Hx No Pertinent Family Hx Physical Exam Vital Signs Vital Signs - First Documented 02/01/21 16:10 Temp 36.2 Pulse 75 Resp 18 B/P (MAP) 145/73 (97) Pulse Ox 97 O2 Delivery Room Air Capillary Refill : Less Than 3 Seconds Height, Weight, BMI Height: 5'6.00" Weight: 204lbs. 0.6oz. [id number]; 31.00 BMI Method:Stated General Appearance: No Apparent Distress, WD/WN HEENT: PERRL/EOMI, TMs Normal, Normal ENT Inspection, Pharynx Normal Neck: Full Range of Motion, Normal Inspection, Non Tender, Supple Respiratory: Chest Non Tender, Lungs Clear, Normal Breath Sounds Cardiovascular: Regular Rate, Rhythm, No Edema, No Murmur, Normal Peripheral Pulses Gastrointestinal: Normal Bowel Sounds, Non Tender, Soft Extremity: Normal Capillary Refill, Normal Inspection, Normal Range of Motion, No Calf Tenderness, No Pedal Edema Neurologic/Psychiatric: Alert, Oriented x3, No Motor/Sensory Deficits, Normal Mood/Affect Skin: Normal Color, Warm/Dry; No Diaphoresis Progress/Results/Core Measures Results/Orders Lab Results Laboratory Tests Test 02/01/21 16:20 02/01/21 16:21 Range/Units White Blood Count 6.5 4.3-11.0 10^3/uL Red Blood Count 4.71 4.30-5.52 10^6/uL Hemoglobin 13.8 13.3-17.7 g/dL Hematocrit 42 40-54 % Mean Corpuscular Volume 88 80-99 fL Mean Corpuscular Hemoglobin 29 25-34 pg Mean Corpuscular Hemoglobin Concent 33 32-36 g/dL Red Cell Distribution Width 13.1 10.0-14.5 % Platelet Count 197 130-400 10^3/uL Mean Platelet Volume 10.4 9.0-12.2 fL Immature Granulocyte % (Auto) 0 % Neutrophils (%) (Auto) 73 42-75 % Lymphocytes (%) (Auto) 20 12-44 % Monocytes (%) (Auto) 6 0-12 % Eosinophils (%) (Auto) 1 0-10 % Basophils (%) (Auto) 0 0-10 % Neutrophils # (Auto) 4.7 1.8-7.8 10^3/uL Lymphocytes # (Auto) 1.3 1.0-4.0 10^3/uL Monocytes # (Auto) 0.4 0.0-1.0 10^3/uL Eosinophils # (Auto) 0.1 0.0-0.3 10^3/uL Basophils # (Auto) 0.0 0.0-0.1 10^3/uL Immature Granulocyte # (Auto) 0.0 0.0-0.1 10^3/uL Prothrombin Time 13.0 12.2-14.7 SEC INR Comment 1.0 0.8-1.4 Activated Partial Thromboplast Time 30 24-35 SEC Sodium Level 138 135-145 MMOL/L Potassium Level 4.5 3.6-5.0 MMOL/L Chloride Level 106 98-107 MMOL/L Carbon Dioxide Level 20 L 21-32 MMOL/L Anion Gap 12 5-14 MMOL/L Blood Urea Nitrogen 18 7-18 MG/DL Creatinine 0.75 0.60-1.30 MG/DL Estimat Glomerular Filtration Rate 105 BUN/Creatinine Ratio 24 Glucose Level 134 H 70-105 MG/DL Calcium Level 8.2 L 8.5-10.1 MG/DL Corrected Calcium 8.7 8.5-10.1 MG/DL Magnesium Level 2.0 1.6-2.4 MG/DL Total Bilirubin 0.2 0.1-1.0 MG/DL Aspartate Amino Transf (AST/SGOT) 34 5-34 U/L Alanine Aminotransferase (ALT/SGPT) 23 0-55 U/L Alkaline Phosphatase 69 40-136 U/L Myoglobin 33.4 10.0-92.0 NG/ML Troponin I < 0.028 <0.028 NG/ML Total Protein 6.8 6.4-8.2 GM/DL Albumin 3.4 3.2-4.5 GM/DL Glucometer 128 H 70-110 MG/DL My Orders Orders - BETH BAILEY Cbc With Automated Diff (02/01/21 16:13) Magnesium (02/01/21 16:13) Chest 1 View, Ap/Pa Only (02/01/21 16:13) Ekg Tracing (02/01/21 16:13) Comprehensive Metabolic Panel (02/01/21 16:13) Myoglobin Serum (02/01/21 16:13) Protime With Inr (02/01/21 16:13) Partial Thromboplastin Time (02/01/21 16:13) O2 (02/01/21 16:13) Monitor-Rhythm Ecg Trace Only (02/01/21 16:13) Ed Iv/Invasive Line Start (02/01/21 16:13) Troponin I (02/01/21 16:13) Morphine Injection (Morphine Injection (02/01/21 17:19) Ondansetron Injection (Zofran Injectio (02/01/21 17:30) Medications Given in ED Vital Signs/I&O 02/01/21 16:10 Temp 36.2 Pulse 75 Resp 18 B/P (MAP) 145/73 (97) Pulse Ox 97 O2 Delivery Room Air Blood Pressure Mean: 97 Progress Progress Note : Time: 16:10 Progress Note Patient seen and evaluated, will obtain labs, EKG, chest x-ray. O2 1 L per NC, SaO2 95% on RA, improved to 98%. No SOA. 1700 patient has no complaints at this time. 1720 patient reports left chest pain has returned and mild nausea, will give Morphine 2 mg IV and Zofran 4 mg IV. No change on telemetry, HR 70s. [address] Padron by phone, agreeable with plans for admission. Dr. Martin will admit and consult Dr. Padron. Will start Lovenox 90 mg SC. 1800 Patient has remained stable and reports less chest pain, since receiving M orphine. No N/V. Initial ECG Impression Date: Feb 01, 2021 Initial ECG Impression Time: 16:10 Initial ECG Rate: 68 Initial ECG Rhythm: Normal Sinus Initial ECG Intervals: Normal Initial ECG Intervals TN 182, QRSD 106, QT 382, QTc 407. [place]rel P 89, QRS 9, T 34. Initial ECG Impression: Normal Initial ECG Comparisson: Unchanged Diagnostic Imaging Diagonstic Imaging: Xray Plain Films/CT/US/NM/MRI: chest Comments NAME: JARED LLANOS [facility] REC#: [id number] PT STATUS: REG ER : 1955 PHYSICIAN: BETH BAILEY ADMIT DATE: 02/01/21/ER Draft Date of Exam:02/01/21 CHEST 1 VIEW, AP/PA ONLY INDICATION: Chest pain. COMPARISON: Study of 09/17/2020. FINDINGS: There is progressive hazy opacity in the left hemithorax. There does appear to be some volume loss with ipsilateral leftward shift of the cardiomediastinum. Correlative chest CT recommended to exclude atelectasis from an endobronchial lesion. The right lung is clear. The right pleural space negative. There is no pneumothorax. Sternal wires midline. IMPRESSION: Volume loss and marked hazy opacity throughout the left hemithorax. Correlative chest CT recommended to exclude postobstructive disease. Dictated on workstation # [id number] Dict: 02/01/[id number] Trans: 02/01/[id number] [facility] [id number] Interpreted by: BEVERLEY BANUELOS Electronically signed by: Departure Impression Primary Impression: Chest pain Qualified Codes: R07.9 - Chest pain, unspecified Additional Impression: CAD (coronary artery disease) Qualified Codes: I25.708 - Atherosclerosis of coronary artery bypass graft(s), unspecified, with other forms of angina pectoris Disposition: ADMITTED INPATIENT Condition: Stable Admissions Decision to Admit Reason: Admit from ER (General) Decision to Admit/Date: Feb 01, 2021 Time/Decision to Admit Time: 16:45 Departure-Patient Inst. Referrals: JILLIAN JAMES MD (PCP/Family) Primary Care Physician Copy Copies To 1: FORTUNATO PADRON MD, AMY ARNP Feb 01, 2021 17:08
[2021-02-01] MEDS ORDERED: morphine INJ 10 MG/ML 1ML (SYR OR VIAL) IVP STA (17:19)
[2021-02-01] MEDS ORDERED: ENOXAPARIN 100 MG/1 ML (LOVENOX) SYR SC STA (17:29)
[2021-02-01] MEDS ORDERED: ONDANSETRON 4 MG/2 ML (SDV) Z0FRAN IVP ONE (17:30)
[2021-02-01] MEDS ORDERED: NS IV 1000 ML 1,000 ML IV SCH (18:15)
[2021-02-01 20:05] VITALS: BP 126/73
[2021-02-01] MEDS ORDERED: CALCIUM CARBONATE 500 MG (TUMS) TAB.CHEW PO PRN (20:45)
[2021-02-01] MEDS ORDERED: ENOXAPARIN 100 MG/1 ML (LOVENOX) SYR SC SCH (21:00)
[2021-02-01] MEDS ORDERED: NITROGLYCERIN 0.4 MG SL TABS BTL 25'S SL PRN (21:00)
[2021-02-01] MEDS: PANTOPRAZOLE 40 MG (PROTONIX) TAB PO SCH (21:06)
[2021-02-01] MEDS ORDERED: ONDANSETRON 4 MG/2 ML (SDV) Z0FRAN IV PRN (21:15)
[2021-02-01] MEDS ORDERED: morphine INJ 4 MG/ML 1 ML (VIAL/SYRINGE) IV PRN (21:15)
[2021-02-01] MEDS: NS IV 1000 ML 1,000 ML IV SCH (21:25)
[2021-02-02] VITALS: BP 125/58
[2021-02-02 03:48] VITALS: BP 151/88
[2021-02-02 05:07] LABS: BASOPHILS % (AUTO) 0 % (0-10); EOSINOPHILS # (AUTO) 0.1 10^3/uL (0.0-0.3); EOSINOPHILS % (AUTO) 2 % (0-10); HEMATOCRIT 42 % (40-54); HEMOGLOBIN 13.7 g/dL (13.3-17.7); LYMPHOCYTES # (AUTO) 1.4 10^3/uL (1.0-4.0); LYMPHOCYTES % (AUTO) 26 % (12-44); MEAN CORPUSCULAR HEMOGLOBIN 29 pg (25-34); MEAN CORPUSCULAR HGB CONC 33 g/dL (32-36); MEAN CORPUSCULAR VOLUME 88 fL (80-99); MEAN PLATELET VOLUME 10.5 fL (9.0-12.2); MONOCYTES # (AUTO) 0.3 10^3/uL (0.0-1.0); MONOCYTES % (AUTO) 6 % (0-12); NEUTROPHILS # (AUTO) 3.5 10^3/uL (1.8-7.8); NEUTROPHILS % (AUTO) 66 % (42-75); PLATELET COUNT 177 10^3/uL (130-400); WHITE BLOOD COUNT 5.3 10^3/uL (4.3-11.0)
[2021-02-02 05:24] LABS: CHLORIDE 107 MMOL/L (98-107); POTASSIUM 4.3 MMOL/L (3.6-5.0); SODIUM 138 MMOL/L (135-145)
[2021-02-02 05:25] LABS: CALCIUM 9.4 MG/DL (8.5-10.1)
[2021-02-02 05:26] LABS: GLUCOSE 105 MG/DL (70-105)
[2021-02-02 05:27] LABS: CARBON DIOXIDE 20 MMOL/L (21-32)
[2021-02-02 05:30] LABS: CREATININE SERUM 0.75 MG/DL (0.60-1.30); GFR ESTIMATED 105
[2021-02-02 05:31] LABS: BUN/CREATININE RATIO 20
[2021-02-02] MEDS: PANTOPRAZOLE 40 MG (PROTONIX) TAB PO SCH ×3 (06:24→07:58)
[2021-02-02 08:04] VITALS: BP 131/71
[2021-02-02] MEDS ORDERED: HEParin (CATH LAB) 2,000 ML IV ONE (08:09)
[2021-02-02] MEDS ORDERED: LIDOCAINE 1% INJ 20 ML 20 ML VIAL ONE (08:09)
[2021-02-02] MEDS ORDERED: NS IV 1000 ML 1,000 ML ONE (08:09)
[2021-02-02] MEDS ORDERED: MIDAZOLAM 5 MG/5 ML (VERSED) VIAL ONE (08:12)
[2021-02-02] MEDS ORDERED: fentaNYL INJ 100 MCG/2 ML AMP ONE (08:12)
--- NOTE | 2021-02-02 08:28 | Consultation-Cardiology ---
HPI-Cardiology Cardiology Consultation Date of Consultation 02/02/21 Date of Admission Time Seen by Provider: 08:23 Indication: Chest pain HPI 65-year-old gentleman with history of extensive coronary artery disease multiple interventions. Had a recent intervention in September 2019, has been doing well. Reported that he started to have chest pain similar to his pain prior to the s tent for the past 2 to 3 days. Described as dull achiness on the left upper side of his chest radiating to the left shoulder and back. Had 2 syncopal episodes. Came into the emergency room for evaluation, this morning he reported that he continued to have chest pain, he was having active chest discomfort on the left upper side. No palpitation. Home Medications & Allergies Allergies: Coded Allergies: Sulfa (Sulfonamide Antibiotics) (Verified Allergy, Unknown, 03/25/08) Home Medication List Reviewed: Yes [id number] Hx Patient Social History Marital Status: Employed/Student: employed Smoking Status: Never a Smoker 2nd Hand Smoke Exposure: No Recent Hopitalizations: No Have you traveled recently?: No Alcohol Use?: No Immunizations Up To Date Tetanus Booster (TDap): Unknown Past Medical History Discussed below Family Medical History Significant Family History: No Pertinent Family Hx Family Medical Hx Noncontributory Review of Systems-General Review of Systems Constitutional: no symptoms reported, see HPI EENTM: see HPI, no symptoms reported Respiratory: see HPI; No cough; dyspnea on exertion; No hemoptysis, No orthopnea, No phlegm, No short of breath, No stridor, No wheezing, No other Cardiovascular: see HPI, chest pain; No edema, No Hx of Intervention, No palpitations; syncope; No vascular heart diseas, No other Gastrointestinal: no symptoms reported, see HPI Genitourinary: no symptoms reported, see HPI Musculoskeletal: no symptoms reported, see HPI Skin: no symptoms reported, see HPI Psychiatric/Neurological: No Symptoms Reported, See HPI All Other Systems Reviewed Negative Unless Noted: Yes Reviewed Test Results Reviewed Test Results Lab Laboratory Tests Test 02/01/21 16:20 02/01/21 16:21 02/01/21 20:55 02/02/21 04:15 Range/Units White Blood Count 6.5 5.3 4.3-11.0 10^3/uL Red Blood Count 4.71 4.75 4.30-5.52 10^6/uL Hemoglobin 13.8 13.7 13.3-17.7 g/dL Hematocrit 42 42 40-54 % Mean Corpuscular Volume 88 88 80-99 fL Mean Corpuscular Hemoglobin 29 29 25-34 pg Mean Corpuscular Hemoglobin Concent 33 33 32-36 g/dL Red Cell Distribution Width 13.1 13.1 10.0-14.5 % Platelet Count 197 177 130-400 10^3/uL Mean Platelet Volume 10.4 10.5 9.0-12.2 fL Immature Granulocyte % (Auto) 0 0 % Neutrophils (%) (Auto) 73 66 42-75 % Lymphocytes (%) (Auto) 20 26 12-44 % Monocytes (%) (Auto) 6 6 0-12 % Eosinophils (%) (Auto) 1 2 0-10 % Basophils (%) (Auto) 0 0 0-10 % Neutrophils # (Auto) 4.7 3.5 1.8-7.8 10^3/uL Lymphocytes # (Auto) 1.3 1.4 1.0-4.0 10^3/uL Monocytes # (Auto) 0.4 0.3 0.0-1.0 10^3/uL Eosinophils # (Auto) 0.1 0.1 0.0-0.3 10^3/uL Basophils # (Auto) 0.0 0.0 0.0-0.1 10^3/uL Immature Granulocyte # (Auto) 0.0 0.0 0.0-0.1 10^3/uL Prothrombin Time 13.0 12.2-14.7 SEC INR Comment 1.0 0.8-1.4 Activated Partial Thromboplast Time 30 24-35 SEC Sodium Level 138 138 135-145 MMOL/L Potassium Level 4.5 4.3 3.6-5.0 MMOL/L Chloride Level 106 107 98-107 MMOL/L Carbon Dioxide Level 20 L 20 L 21-32 MMOL/L Anion Gap 12 11 5-14 MMOL/L Blood Urea Nitrogen 18 15 7-18 MG/DL Creatinine 0.75 0.75 0.60-1.30 MG/DL Estimat Glomerular Filtration Rate 105 105 BUN/Creatinine Ratio 24 20 Glucose Level 134 H 105 70-105 MG/DL Calcium Level 8.2 L 9.4 8.5-10.1 MG/DL Corrected Calcium 8.7 8.5-10.1 MG/DL Magnesium Level 2.0 1.6-2.4 MG/DL Total Bilirubin 0.2 0.1-1.0 MG/DL Aspartate Amino Transf (AST/SGOT) 34 5-34 U/L Alanine Aminotransferase (ALT/SGPT) 23 0-55 U/L Alkaline Phosphatase 69 40-136 U/L Myoglobin 33.4 10.0-92.0 NG/ML Troponin I < 0.028 < 0.028 < 0.028 <0.028 NG/ML Total Protein 6.8 6.4-8.2 GM/DL Albumin 3.4 3.2-4.5 GM/DL Glucometer 128 H 70-110 MG/DL Physical Exam Physical Exam Vital Signs Vital Signs - First Documented 02/01/21 16:10 Temp 36.2 Pulse 75 Resp 18 B/P (MAP) 145/73 (97) Pulse Ox 97 O2 Delivery Room Air Capillary Refill : Less Than 3 Seconds Height, Weight, BMI Height: 5'6.00" Weight: 204lbs. 0.6oz. [id number]; 31.38 BMI Method:Stated General Appearance: No Apparent Distress, WD/WN Eyes: Bilateral Eye Normal Inspection, Bilateral Eye PERRL, Bilateral Eye EOMI HEENT: PERRL/EOMI, TMs Normal, Normal ENT Inspection, Pharynx Normal Neck: Full Range of Motion, Normal Inspection, Non Tender, Supple Respiratory: Chest Non Tender, Lungs Clear, Normal Breath Sounds Cardiovascular: Regular Rate, Rhythm, No Edema, No Murmur, Normal Peripheral Pulses Gastrointestinal: Normal Bowel Sounds, Non Tender, Soft Back: Normal Inspection, No CVA Tenderness, No Vertebral Tenderness Extremity: Normal Capillary Refill, Normal Inspection, Normal Range of Motion, No Calf Tenderness, No Pedal Edema Neurologic/Psychiatric: Alert, Oriented x3, No Motor/Sensory Deficits, Normal Mood/Affect Skin: Normal Color, Warm/Dry; No Diaphoresis Lymphatic: No Adenopathy A/P-Cardiology Admission Diagnosis Chest pain Coronary artery disease Syncope Hyperlipidemia Assessment/Plan Chest pain, resembling angina, unstable angina, has been having persistent pain. EKG and cardiac enzymes did not show any acute abnormality. Patient is concerned due to the fact that the pain is very similar to the pain that he had prior to his stent. We discussed the management plan, cannot tolerate stress test due to the active chest pain. I will proceed with left heart catheterization possible PTCA Syncope, had multiple syncopal episode due to severe hypotension while he was on beta-long in the past. Patient had another 2 episodes of syncope in the last week while he was having chest pain. Coronary artery disease, History of multiple interventions where he had stents in the LAD, circumflex and right coronary artery done in 2010. Had another cardiac catheterization in June 2013 showing 80 percent stenosis in the ostium of the LAD confirmed with FFR and 95 percent stenosis in the proximal to mid right coronary artery. Patient underwent CABG 2 at [facility] June 2013 using ARCE to the LAD and reverse saphenous vein graft to the distal right coronary artery with excellent results. Patient was hospitalized on September 17, 2020 underwent stress test which showed reversible ischemia involving the mid to apical inferior wall and inferolateral wall, cardiac catheterization was carried out by Dr. Inman on September 18, 2020 showing severe bill moore's slough two-vessel coronary artery disease involving the LAD and right coronary artery, patent stent in the large fourth obtuse marginal, patent ARCE to the LAD, patent vein graft to the right posterior lateral branch, had severe disease in the right coronary artery that is providing flow to the right PDA underwent stenting using Erika 3 x 18 mm with excellent results. Patient was feeling significantly better after the stent, currently started to have chest pain again. I will proceed with cardiac catheterization possible PTCA. Congestive heart failure, most recent echocardiogram done in July 2014 showed normal LV function, ejection fraction 60 percent. Continue to monitor. Patient is unable to tolerate beta blockers or Edil inhibitors/ARB's secondary to history of hypotension and syncope. History of Hypertension, episodes of severe hypotension, reporting improvement after discontinuation of beta blockers and lisinopril. Hyperlipidemia, continue to monitor lipids Hyperparathyroidism, underwent surgical parathyroidectomy on September 22, 2016, and a gain in March 2017. Being followed at . Obesity, BMI is 31, weight loss and exercise was discussed Nonobstructive carotid artery stenosis per carotid duplex done in May 2019, I will evaluate carotid ultrasound Strong family history of heart disease. Clinical Quality Measures AMI/AHF: ASA po Prior to arrival: Yes FORTUNATO BOUCHER MD Feb 02, 2021 08:28
--- NOTE | 2021-02-02 08:29 | Conscious Sedation/ASA ---
Conscious Sedation Pre-Proced Time 08:28 ASA Score 3 For ASA 3 and 4: Consider anesthesia and medical clearance. Also, for patients with a history of failed moderate sedation consider anesthesia. Airway Lungs Heart ASA score ASA 1: a normal healthy patient ASA 2: a patient with a mild systemic disease (mid diabetes, controlled hypertension, obesity x ASA 3: a patient with a severe systemic disease that limits activity (angina, COPD, prior Myocardial infarction) ASA 4: a patient with an incapacitating disease that is a constant threat to life (CHF, renal failure) ASA 5: a moribund patient not expected to survive 24 hrs. (ruptured aneurysm) ASA 6: a declared brain- patient whose organs are being harvested. For emergent operations, add the letter E after the classification Mallampati Classification Grade 3 Sedation Plan Analgesia, Amnesia, Plan communicated to team members, Discussed options with patient/fam, Discussed risks with patient/fam The patient is an appropriate candidate to undergo the planned procedure, sedation, and anesthesia. The patient immediately re-assessed prior to indication. FORTUNATO BOUCHER MD Feb 02, 2021 08:29
[2021-02-02] MEDS: NS IV 1000 ML 1,000 ML IV SCH (08:54)
[2021-02-02] MEDS ORDERED: ASPIRIN E.C. 325 MG (ECOTRIN) TABLET PO SCH (09:00)
[2021-02-02] MEDS ORDERED: NS IV 1000 ML 1,000 ML IV SCH (09:15)
[2021-02-02] MEDS ORDERED: PATIENT MAY USE OWN MEDS, ALL PO SCH (09:15)
--- NOTE | 2021-02-02 09:20 | Cardiac Cath Report ---
Cardiac Cath Report Physician (s)/Certified Nurse Midwife (s) Physician FORTUNATO BOUCHER MD Pre-Procedure Diagnosis Pre-Procedure Diagnosis: Coronary artery disease with unstable angina. Post-Procedure Note Procedure Start Date: Feb 02, 2021 Name of Procedure: Left heart catheterization Vein graft angiogram ARCE angiogram Findings/Procedure Note PROCEDURE NOTE: 65-year-old gentleman with history of coronary artery disease, CABG, multiple intervention, admitted with acute chest pain. Continue to have persistent chest pain, brought for cardiac catheterization possible PTCA After explaining the procedure to the patient, all pros and cons were explained, all questions were answered. The patient signed the consent and then he was placed on the cardiac catheterization laboratory. Groin was prepped SL fashion local anesthesia was used. Sheath placed in the artery. Chapin right and left catheter were used to access the coronary system.I had difficulty intubating the vein graft, I perform aortic root angiogram then reshaped the Chapin right catheter and I was able to access the vein graft vein Graft evaluated. ARCE evaluated. Pigtail was used to access the left ventricular cavity. Left ventriculogram was done Aortic root angiogram was done At the end of the procedure the sheath was removed. Closure device was deployed FINDINGS: Hemodynamics LV 142/22, end-diastolic pressure of 22 Aorta 132/72 mean of 95 ANATOMY: Left Main is free of obstructive disease Left Anterior Descending has severe proximal disease with patent ARCE to LAD Left Circumflex has patent stent at the midportion followed by an area of 40 to 50% stenosis otherwise nonobstructive disease, the first and second obtuse marginal branch are very small arteries with disease. Right Coronary Artery has a patent proximal stent with mild disease in the midportion. The vein graft to the right PDA is patent ARCE angiogram showed patent ARCE to LAD with good flow distally Vein Graft angiogram showed single vein graft to the right PDA with good flow distally LV Gram was done showing normal left ventricular size and systolic function estimate ejection fraction 50% Aorta evaluation showed normal aortic root, no dissection or aneurysm, origin of a single vein graft was noted CONCLUSION: 1. Patent ARCE to LAD and vein graft to the right PDA, patent stent in the mid circumflex artery with 40 to 50% stenosis beyond the stent, patent stent in the proximal right coronary artery with mild to moderate disease beyond the stent otherwise small vessel disease distally 2. Normal left ventricular size and systolic function estimate ejection fraction 50% 3. Normal aortic root DISCUSSION AND RECOMMENDATION: Chest pain is probably due to small vessel disease, medical therapy is recommended conservative management Anesthesia Type: Conscious Sedation Estimated blood loss (mL): 25 ml Contrast Amount: 113 ml Total Radiation Dose: 1267 mGy Post-Procedure Diagnosis Post-operative diagnosis: Chest pain Coronary artery disease Hypertension Hyperlipidemia FORTUNATO BOUCHER MD Feb 02, 2021 09:20
--- NOTE | 2021-02-02 09:36 | Discharge Inst-Post CATH ---
Discharge Inst-CATH/EP Problems Reviewed?: Yes Post Cardiac Cath/EP D/C Inst Follow Up/Plan Appointment with Dr Padron in 2-4 weeks <b>CARDIAC CATH/EP PROCEDURE DISCHARGE INSTRUCTIONS</b> ACTIVITY * Go Home directly and rest. * Limit activity of the leg (or wrist if it was used) for 7 days including aerobics, swimming, jogging, bicycling, etc. * Restrict stair-climbing for 7 days if possible, if not, climb up with your non-cath leg, then bring together on the same step. * Avoid lifting, pushing, pulling or excessive movement of the affected extremity for 7 days. * Customary sexual activity may be resumed after 2 days-use caution not to use a position that strains or causes pain to the affected extremity. * No driving for 24 hours. * NO SMOKING. * Avoid straining for bowel movements for 7 days. * Gentle walking on level ground is allowed. * Returning to work will depend on the type of procedure and the results. Your doctor will discuss this with you. CALL YOUR DOCTOR FOR ANY OF THE FOLLOWING: *If bleeding from the puncture site occurs- Apply gentle pressure to site with clean cloth and call your doctor or EMS. * If a knot or lump forms under the skin, increases in size, or causes pain. * If bruising appears to be worsening or moving further down your leg instead of disappearing. * Temperature above 101 F. CARE OF YOUR GROIN INCISION; * Bruising or purple discoloration of the skin near the puncture site is common. * You may shower only, no bathtub bathing for 5 days. Be careful to avoid slipping as your leg may feel stiff. * If a closure device was used on your femoral artery, please see the attached guide regarding care of the device and your leg. * Leave dressing on FOR 24 hours. CARE OF YOUR WRIST INCISION; * Bruising or purple discoloration of the skin near the puncture site is common. * You may shower. * DO NOT submerge wrist. * Leave dressing on FOR 24 hours. FORTUNATO PADRON MD Feb 02, 2021 09:36
[2021-02-02 12:00] VITALS: BP 147/78
== END 2021-02-02 16:35 | disposition home or self-care (01) ==
LOC: ER 16:05 → EDUNIT# 16:11 → CSD 17:20
PROVIDERS: ADMIT Internal Medicine; ATTEND Internal Medicine
DX: I25.110 Atherosclerotic heart disease of native coronary artery with unstable angina pectoris (principal); I65.29 Occlusion and stenosis of unspecified carotid artery; I11.0 Hypertensive heart disease with heart failure; I50.9 Heart failure, unspecified; E21.3 Hyperparathyroidism, unspecified; E66.9 Obesity, unspecified; E78.00 Pure hypercholesterolemia, unspecified; E78.5 Hyperlipidemia, unspecified; R55 Syncope and collapse; F41.9 Anxiety disorder, unspecified; Z79.82 Long term (current) use of aspirin; Z79.899 Other long term (current) drug therapy; Z95.1 Presence of aortocoronary bypass graft; Z68.31 Body mass index [BMI] 31.0-31.9, adult
CPT/HCPCS: 71045; 80048; 80053; 82947; 83735; 83874; 84484 ×2; 85025 ×2; 85610; 85730; 93005 ×2; 93041; 93459; 93567; 96372; 96374; 96375; 99284; C1760; C1894; G0378; 36415

== ENCOUNTER → 2021-02-23 | Outpatient (CLI) | payer BC, MEDICARE ==
[~2021-02-23] MED LIST changes: +CATHETER FLUSH 10 ML SYR IV PRN; +HOLD METFORMIN - RECEIVED CONTRAST 20 ML VIAL IV SCH; +IOHEXOL 350 MG/ML 100 ML (OMNIPAQUE 350) VIAL IV ONE; +NS 100 ML (IVPB) BAG IV ONE
[2021-02-23 13:28] LABS: CREATININE SERUM 0.79 MG/DL (0.60-1.30)
--- NOTE | 2021-02-23 15:38 | Diagnostic Imaging Report ---
EXAMINATION: CT chest with intravenous contrast. TECHNIQUE: Multiple contiguous axial images were obtained through the chest after the uneventful administration of intravenous contrast. All CT scans use one or more of the following dose optimizing techniques: Automated exposure control, MA and/or KvP adjustment based on patient size and exam type or iterative reconstruction. HISTORY: Abnormal chest radiograph. COMPARISON: 06/29/2013. FINDINGS: There is no edema or pneumonia. No pleural effusion. No pneumothorax. No suspicious nodules. There is scarring in the left lung. There has been coronary artery bypass grafting. There is volume loss in the left hemithorax. There is abundant mediastinal fat. There is no axillary or supraclavicular lymphadenopathy. There is no mediastinal lymphadenopathy. Heart size is normal. There are severe coronary artery calcifications. No pericardial effusion. Aorta is normal in caliber. Limited views of the upper abdomen show changes of cholecystectomy. There is a nonobstructing stone in the left kidney. There are no suspicious osseous lesions. IMPRESSION: 1. There is abundant mediastinal fat and mild volume loss in the left lung likely responsible for the radiographic abnormality. No pulmonary parenchymal abnormality is seen. Dictated by: Dictated on workstation # [id number]
== END ==
LOC: RAD 12:58
PROVIDERS: ATTEND Internal Medicine
DX: R91.8 Other nonspecific abnormal finding of lung field (principal)
CPT/HCPCS: 36415; 71260; 82565; 84520

== ENCOUNTER 2021-08-05 11:28 | Outpatient (CLI) | payer BC, MEDICARE ==
[~2021-08-05] VITALS: Ht 170 cm; Wt 90.7 kg
[~2021-08-05 11:28] MED LIST changes: -CATHETER FLUSH 10 ML SYR IV PRN; -HOLD METFORMIN - RECEIVED CONTRAST 20 ML VIAL IV SCH; -IOHEXOL 350 MG/ML 100 ML (OMNIPAQUE 350) VIAL IV ONE; -NS 100 ML (IVPB) BAG IV ONE
[2021-08-07] MEDS ORDERED: CHOL200074 PO (12:32)
== END 2021-08-07 12:41 | disposition home or self-care (01) ==
LOC: PREOP 11:28
PROVIDERS: ATTEND Internal Medicine
DX: Z01.818 Encounter for other preprocedural examination (principal)

== ENCOUNTER 2021-08-14 06:46 | Day surgery (SDC) | payer MEDICARE, OTHER ==
[~2021-08-14] VITALS: Ht 170 cm; Wt 90.7 kg
[~2021-08-14 06:46] MED LIST changes: +CHOL200074 PO
[2021-08-14] MEDS ORDERED: LACTATED RINGERS 1,000 ML IV STA (06:59)
[2021-08-14 07:09] VITALS: BP 145/73
[2021-08-14] MEDS ORDERED: MIDAZOLAM 2 MG/2 ML (VERSED) VIAL ONE (07:37)
[2021-08-14] MEDS ORDERED: PROPOFOL INJECTION 50 ML IV ONE (07:38)
--- NOTE | 2021-08-14 07:47 | Pre-Op Note & Conscious Sedat ---
Pre-Operative Progress Note H&P Reviewed The H&P was reviewed, patient examined and no changes noted. Date H&P Reviewed: August 14, 2021 Time H&P Reviewed: 07:47 Conscious Sedation Pre-Proced ASA Score 2 For ASA 3 and 4: Consider anesthesia and medical clearance. Also, for patients with a history of failed moderate sedation consider anesthesia. Airway Lungs Heart ASA score ASA 1: a normal healthy patient ASA 2: a patient with a mild systemic disease (mid diabetes, controlled hypertension, obesity ASA 3: a patient with a severe systemic disease that limits activity (angina, COPD, prior Myocardial infarction) ASA 4: a patient with an incapacitating disease that is a constant threat to life (CHF, renal failure) ASA 5: a moribund patient not expected to survive 24 hrs. (ruptured aneurysm) ASA 6: a declared brain- patient whose organs are being harvested. For emergent operations, add the letter E after the classification Mallampati Classification Grade 2 Sedation Plan Analgesia, Amnesia, Plan communicated to team members, Discussed options with patient/fam, Discussed risks with patient/fam The patient is an appropriate candidate to undergo the planned procedure, sedation, and anesthesia. The patient immediately re-assessed prior to indication. JILLIAN JAMES MD August 14, 2021 07:47
[2021-08-14 08:20] VITALS: BP 102/63
[2021-08-14 08:25] VITALS: BP 108/64
[2021-08-14 08:40] VITALS: BP 108/64
--- NOTE | 2021-08-14 09:18 | Anesthesia-General Post-Op ---
MAC Patient Condition Mental Status/LOC: Same as Preop Cardiovascular: Satisfactory Nausea/Vomiting: Absent Respiratory: Satisfactory Pain: Controlled Complications: Absent Post Op Complications Complications None Follow Up Care/Instructions Patient Instructions None needed. Anesthesiology Discharge Order Discharge Order Patient is doing well, no complaints, stable vital signs, no apparent adverse anesthesia problems. No complications reported per nursing. SHAGUFTA LOPEZ CRNA August 14, 2021 09:18
--- NOTE | 2021-08-14 14:08 | OPERATIVE REPORT ---
DATE OF SERVICE: COLONOSCOPY SUMMARY INDICATION FOR THE PROCEDURE: Screening. DESCRIPTION OF PROCEDURE: The patient was placed in the left lateral decubitus position. Prior to undergoing colonoscopy, digital rectal evaluation was performed. There was no evidence for internal or external hemorrhoids. Prostate is moderate to severely enlarged and anodular on digital inspection. No other abnormalities were noted on digital inspection of anal canal or distal rectal vault. The colonoscope was then inserted into the rectum and under direct visualization advanced to cecum. The cecum was identified by identification of the ileocecal valve and ileocecal strap. Photographic documentation was obtained. Careful inspection was made as colonoscope was withdrawn. Quality of prep was good. FINDINGS: There was no evidence for internal or external hemorrhoids and the rectum was unremarkable. Mild to moderate diverticular disease confined to the sigmoid colon was present without evidence for diverticulitis. Present in the distal descending colon was a 4 mm sessile polyp. It was photographed and biopsied and ablated with the hot forceps with no subsequent blood loss. The remainder of the descending colon, splenic flexure, transverse colon, hepatic flexure, ascending colon and cecum was unremarkable. ASSESSMENT: One diminutive polyp was removed from the distal descending colon. As long as there are no surprises on histopathology report, we will advocate consideration for repeat screening colonoscopy in 10 years. Digital evaluation of the prostate was compatible with moderate to severe BPH and mild to moderate diverticular disease confined to the sigmoid colon was present without evidence for diverticulitis. Job ID: [id number] DocumentID: [id number] Dictated Date: 08/14/2021 08:18:56 Seat Coverer Date: 08/14/2021 14:07:22 Dictated By: JILLIAN JAMES MD
--- NOTE | 2021-08-20 10:56 | HISTORY AND PHYSICAL ---
COLONOSCOPY HISTORY AND PHYSICAL HISTORY OF PRESENT ILLNESS: The patient is a 66-year-old white male who presented to the clinic reporting 5-day history of dysuria. He has pain towards the end of his penis when he urinates without any significant increase in frequency. He reports no trauma. His has not been well and he has not been sexually active for the past 3 months, he has noted no discharge. He denies pelvic pain, night sweats, chills or fever. He has noted no sores in the genitalia. Denies any groin discomfort. A month ago, he presented with abdominal pain with consideration for diverticulitis. He reported resolution of symptoms on 10 days of Augmentin. He has noted no blood in the stool or bright red blood per rectum. We have been recommending screening colonoscopy for some time, but he declined, but is now willing to go through with the procedure. PHYSICAL EXAMINATION: GENERAL: Reveals a white male, appeared to be in no acute distress, a little bit anxious. VITAL SIGNS: Blood pressure 136/70. HEENT: Unremarkable. Sclerae nonicteric. Mallampati 3 oropharyngeal configuration. CHEST: Clear. CARDIOVASCULAR: Reveals regular rate and rhythm without S3 or S4. ABDOMEN: Soft, supple without mass, organomegaly, or tenderness. EXTREMITIES: Reveal no cyanosis, clubbing, or edema. UA was obtained with microscopy, rare white cells, no bacteria noted with no dipstick abnormalities being appreciated. ASSESSMENT AND PLAN: Likely nongonococcal urethritis. He was given 5 days of 250 mg Levaquin and is being set up for his first screening colonoscopy on 08/13/2021. Prep instructions with the Suprep kit were given and questions were answered. If there is not resolution of his current urethritis type symptoms, after week he is to return for early repeat evaluation was advised to increase water intake as his specific gravity was elevated at 1.03. Job ID: [id number] DocumentID: [id number] Dictated Date: 07/22/2021 16:46:59 Hot Molder Date: 07/22/2021 17:11:23 Dictated By: JILLIAN JAMES MD <Dictated by JILLIAN JAMES MD> <Electronically signed by JILLIAN JAMES MD> 07/24/21 1033 MTDD
== END 2021-08-14 08:45 | disposition home or self-care (01) ==
LOC: ENDO 06:46
PROVIDERS: ATTEND Internal Medicine
DX: Z12.11 Encounter for screening for malignant neoplasm of colon (principal); K63.5 Polyp of colon; K57.30 Diverticulosis of large intestine without perforation or abscess without bleeding; N40.0 Benign prostatic hyperplasia without lower urinary tract symptoms
CPT/HCPCS: 88305

== ENCOUNTER → 2022-04-06 | Outpatient (CLI) | payer MEDICARE, OTHER ==
--- NOTE | 2022-04-06 15:34 | Diagnostic Imaging Report ---
INDICATION: Spinous process pain. COMPARISON: None available TECHNIQUE: 3 radiographs of the lumbar spine dated 04/06/2022. FINDINGS: 5 lumbar type vertebral bodies are present. Alignment of the lumbar spine is well maintained. Besides mild endplate degenerative changes, vertebral body heights are well-maintained. Multilevel anterior osteophytes, particularly within the visualized lower thoracic spine. Mild disc space height loss at L3/L4 and L4/L5. No severe disc space height loss. Scattered facet joint degenerative changes, greatest within the lower lumbar spine. No acute fracture or dislocation. The sacroiliac joints are intact. Mild degenerative changes in the bilateral hips. A 6 mm calcification is noted overlying the left renal shadow. IMPRESSION: No acute osseous abnormality with mild multilevel degenerative changes, as described above. A 6 mm calcification overlying the left renal shadow. This could relate to a renal calculus versus enteric contents versus vascular calcification. Dictated by: Dictated on workstation # [id number]
== END ==
LOC: RAD 11:34
PROVIDERS: ATTEND Nurse Practitioner Family
DX: M47.816 Spondylosis without myelopathy or radiculopathy, lumbar region (principal); M51.36 Other intervertebral disc degeneration, lumbar region; M16.0 Bilateral primary osteoarthritis of hip
CPT/HCPCS: 72100

== ENCOUNTER → 2022-04-12 | Outpatient (CLI) | payer MEDICARE, OTHER ==
[2022-04-12 12:00] LABS: ALBUMIN 4.2 GM/DL (3.2-4.5); POTASSIUM 4.2 MMOL/L (3.6-5.0)
[2022-04-12 12:02] LABS: CALCIUM 9.6 MG/DL (8.5-10.1)
[2022-04-12 12:03] LABS: TOTAL PROTEIN 7.8 GM/DL (6.4-8.2)
[2022-04-12 12:05] LABS: BILIRUBIN,TOTAL 0.4 MG/DL (0.1-1.0)
--- NOTE | 2022-04-12 12:05 | Diagnostic Imaging Report ---
PROCEDURE: CT urinary tract, rule out kidney stone. TECHNIQUE: Multiple contiguous axial images were obtained through the abdomen and pelvis without the use of intravenous contrast. Auto Exposure Controls were utilized during the CT exam to meet ALARA standards for radiation dose reduction. INDICATION: Left flank pain. COMPARISON: 03/20/2015 FINDINGS: Included portions of the lung bases are clear. CT ABDOMEN: Normal appendix is identified. Small bowel loops are nondistended. There are a few scattered colonic diverticula, but no CT evidence acute diverticulitis. Nonobstructive left renal calculus is noted. No renal calculi are seen on the right. Additionally, no ureteral calculi are seen on either side. There is no hydroureteronephrosis or other evidence of obstruction. No suspicious renal masses are seen on this noncontrast study. The adrenal glands, spleen, pancreas, and liver have an unremarkable noncontrast CT appearance. There is no loculated fluid collection, free fluid or free air within the abdomen. No abnormal mesenteric or retroperitoneal adenopathy is seen. Osseous structures show no acute abnormalities. CT PELVIS: Urinary bladder is unopacified. No calculi are seen within urinary bladder. Prostate is enlarged. It measures 6 x 5 cm. There is no loculated fluid collection, free fluid or free air within the pelvis. No abnormal adenopathy is seen. Osseous structures show no acute abnormalities. IMPRESSION: 1. Redemonstration nonobstructive left renal calculus. 2. No ureteral calculi, hydronephrosis, or other evidence of obstruction. 3. No other acute abnormalities are seen within the abdomen or pelvis. 4. Prostatomegaly. Dictated by: Dictated on workstation # [id number]
[2022-04-12 12:06] LABS: CREATININE SERUM 0.84 MG/DL (0.60-1.30)
== END ==
LOC: RAD 11:30
PROVIDERS: ATTEND Nurse Practitioner Family
DX: N20.0 Calculus of kidney (principal); N40.0 Benign prostatic hyperplasia without lower urinary tract symptoms
CPT/HCPCS: 36415; 74176; 80053

== ENCOUNTER → 2022-05-03 | Outpatient (CLI) | payer MEDICARE, OTHER ==
--- NOTE | 2022-05-03 16:56 | Diagnostic Imaging Report ---
INDICATION: Pain. COMPARISON: 04/12/2022. TECHNIQUE: Two radiographs of the left hip dated 05/03/2022. FINDINGS: No acute fracture or dislocation. No destructive osseous process. Mild joint space narrowing of the left hip with mild osteophyte formation. The left femoral head maintains its normal shape and contour. Surgical clip overlying the left inguinal region is again seen. IMPRESSION: No acute osseous abnormality with mild degenerative changes of the left hip. Dictated by: Dictated on workstation # [id number]
== END ==
LOC: RAD 10:26
PROVIDERS: ATTEND Internal Medicine
DX: M16.12 Unilateral primary osteoarthritis, left hip (principal); R10.30 Lower abdominal pain, unspecified
CPT/HCPCS: 73502

== ENCOUNTER 2022-05-17 09:52 | Outpatient (RCR) | payer MEDICARE, OTHER | END 2022-05-18 | disposition home or self-care (01) | PROVIDERS: ATTEND Internal Medicine | DX: M54.16 Radiculopathy, lumbar region (principal) ==

== ENCOUNTER 2022-06-17 15:20 | Outpatient (RCR) | payer MEDICARE, OTHER | END 2022-06-18 | disposition home or self-care (01) | PROVIDERS: ATTEND Internal Medicine | DX: M54.16 Radiculopathy, lumbar region (principal) ==

== ENCOUNTER 2022-07-08 11:09 | Outpatient (RCR) | payer MEDICARE, OTHER | END 2022-07-08 12:10 | disposition home or self-care (01) | PROVIDERS: ATTEND Internal Medicine | DX: M54.16 Radiculopathy, lumbar region (principal) ==